=== PATIENT | female | born 1960 | race Caucasian/White ===

== ENCOUNTER 2020-10-06 16:17 | Outpatient (CLI) | payer OTHER, SELFPAY ==
--- NOTE | ~2020-10-06 | MM_ITS ---
EXAMINATION: MM screening reyna BI w gemma HISTORY: Screening TECHNIQUE: Craniocaudal and mediolateral oblique 3-D tomosynthesis images were obtained and synthetic 2-D images were generated. CAD analysis was submitted and interpreted. COMPARISON: Comparison to multiple prior studies sequentially, with oldest reviewed study dated 10/02. BREAST PARENCHYMAL COMPOSITION: There are scattered areas of fibroglandular density. FINDINGS: There is no evidence of suspicious mass, calcification, or architectural distortion to sugg est malignancy in either breast. There has been no suspicious interval change. IMPRESSION: 1. No mammographic evidence of malignancy. 2. Recommend routine screening mammography in one year. BI-RADS Category 1: Negative Reviewed, dictated and finalized at location A. ICATION SECURITY DEVELOPER
== END 2020-10-06 16:18 | disposition home or self-care (01) ==
LOC: ANHIMG 16:21
PROVIDERS: Family Provider Internal Medicine; PCP Internal Medicine; Visit Provider Obstetrics & Gynecology
DX: Z12.31 Encounter for screening mammogram for malignant neoplasm of breast (principal)
CPT/HCPCS: 77063; 77067

== ENCOUNTER 2021-03-30 17:01 | Emergency (ER) | payer OTHER, SELFPAY ==
--- NOTE | ~2021-03-30 | XR_ITS ---
EXAMINATION: XR finger 5th RT min 2V INDICATION: Right fifth finger pain, initial encounter TECHNIQUE: Four views of the right fifth finger are obtained. COMPARISON: None available FINDINGS: There is an acute, traumatic, closed, dorsal plate avulsion of the fifth distal phalanx. Th e fracture fragment is proximally retracted approximately 2 mm. There is flexion at the distal interp halangeal joint and mild extension at the proximal interphalangeal joint. Soft tissue swelling is not ed. IMPRESSION: 1. Dorsal plate avulsion of the fifth distal phalanx with 2 mm of retraction of the fracture fragment . Orthopedic evaluation is recommended. Reviewed, dictated and finalized at location A. IMPRESSION: 1. Dorsal plate avulsion of the fifth distal phalanx with 2 mm of retraction of the fracture fragment. Orthopedic evaluation is recommended.
--- NOTE | 2021-03-30 17:05 | ED.UPPEXIN ---
HPI - Extremity Injury (Upper) General Chief Complaint: Wound/Laceration Stated Complaint: Right Finger Pain Time Seen by Provider: 03/30/21 17:05 Source: patient, family and RN notes reviewed History of Present Illness HPI narrative: Patient is a 61-year-old female who presents the urgent care with complaints of right finger pain. Patient states that she jumped up into her boyfriend's truck, landing on her right pinky finger. Patient states that it is been deformed since approximately 1 PM. States that she is unable to straighten the finger. Patient is used ice for the pain. Denies of any other acute complaints or injuries. No acute distress noted. Patient aware of the plan of care. Some parts of this dictation were generated by voice recognition software and may contain typographical and/or grammatical inaccuracies. Related Data Home Medications Medication Instructions Recorded Confirmed dorzolamide-timolol 03/30/21 etodolac mg 03/30/21 lisinopril 03/30/21 rosuvastatin mg 03/30/21 travoprost drp 03/30/21 Allergies Allergy/AdvReac Type Severity Reaction Status Date / Time Z-PACK Allergy Unknown Uncoded 11/21/16 18:27 Dust AdvReac Unknown Uncoded 11/21/16 18:27 Molds and Smuts AdvReac Unknown Uncoded 11/21/16 18:27 Review of Systems Review of Systems: CONSTITUTIONAL: Denies fever, chills, or sweats. EYES: Denies visual changes, redness, or discharge. ENT: Denies rhinorrhea, congestion, sore throat, or otalgia. CARDIOVASCULAR: Denies chest pain, palpitations, or edema. RESPIRATORY: Denies cough or dyspnea. GASTROINTESTINAL: Denies abdominal pain, nausea, vomiting, or diarrhea. GENITOURINARY: Denies dysuria or hematuria. SKIN: Denies rash or itching. MUSCULOSKELETAL: Reports of right finger pain NEUROLOGIC: Denies headache, numbness, or weakness. All other systems reviewed are negative, except as documented in HPI. PMFSH Comments At the time of my signature, I reviewed and agree with the nursing past medical, surgical, social, and family history. There is no relevant family history pertinent to the patient complaint. Exam Narrative: GENERAL: This is a well-nourished, well-developed patient, in no apparent distress. HEAD: normocephalic, atraumatic. EYES: PERRL. Sclera clear/white. Vision is grossly intact. EARS: External ears normal NOSE: External nose normal with no obvious nasal discharge, nares without redness, no rhinorrhea. THROAT: Mucous membranes moist NECK: Neck supple CARDIOVASCULAR: Regular rate and rhythm without murmurs, gallops, or rubs. RESPIRATORY: Clear to auscultation. Breath sounds equal bilaterally. No wheezes, rales, or rhonchi. SKIN: warm, intact with no suspicious lesions or rash, good texture and turgor. NEURO: awake, alert, and oriented to person, place and time. There were no obvious focal neurologic abnormalities. EXTREMITIES: Notable deformity noted to the DIP of the fifth digit on the right hand. Positive strong right radial pulse with capillary refill less than 2 seconds. Range of motion to affected digit limited due to deformity and pain Course Vital Signs Vital signs: Vital Signs Temperature 98.2 F 03/30/21 17:09 Pulse Rate 81 03/30/21 17:09 Respiratory Rate 16 03/30/21 17:09 Blood Pressure 129/86 03/30/21 17:09 Pulse Oximetry 100 03/30/21 17:09 Temperature 98.2 F 03/30/21 17:13 Pulse Rate 81 03/30/21 17:13 Respiratory Rate 16 03/30/21 17:13 Blood Pressure 129/86 03/30/21 17:13 Pulse Oximetry 100 03/30/21 17:13 Reviewed Procedures Orthopedic Splinting/Casting Injury #1: Side: right Upper Extremity Injury Location: finger (Fifth digit) Upper Extremity Immobilizer: aluminum form splint and betty tape Additional Comments: Metal form splint applied to the fifth digit of the right hand and betty taped to the fourth digit with Coban. Patient tolerated well. MDM - Extremity Injury (Upper) MDM Narrative M
[2021-03-30 17:09] VITALS: BP 129/86; PULSE 81; RESP 16; TEMP 36.8; O2SAT 100
[2021-03-30 17:13] VITALS: BP 129/86; PULSE 81; RESP 16; TEMP 36.8; O2SAT 100
== END 2021-03-30 18:00 | disposition home or self-care (01) ==
PROVIDERS: Emergency Provider Nurse Practitioner Family; PCP Internal Medicine
DX: S62.636A Displaced fracture of distal phalanx of right little finger, initial encounter for closed fracture (principal); X58.XXXA Exposure to other specified factors, initial encounter; E78.00 Pure hypercholesterolemia, unspecified; I10 Essential (primary) hypertension; H40.9 Unspecified glaucoma
CPT/HCPCS: 29130; 73140; 99214; G0463

== ENCOUNTER 2021-05-17 01:25 | Day surgery (SDC) | payer OTHER, SELFPAY ==
[2021-05-16 10:55] VITALS: BMI 28.3
--- NOTE | ~2021-05-17 | XR_ITS ---
EXAMINATION: XR surgery orthopedic EXAM DATE: 05/17/2021 15:23 INDICATION: Right 5th finger closed pinning. TECHNIQUE: Fluoroscopy used during XR surgery orthopedic performed by Dr. Aldo Valdez MD. Radi ologist was not present for the imaging or procedure. Total fluoroscopic time of 39 seconds. The DA P for this procedure was 3.5 cGycm2. A total of 2 images sent to PACS from the exam. Correlation ma de to Finger examination 03/30/2021. FINDINGS: Frontal and lateral images demonstrates a pin bridging the right 5th distal interphalangea l joint. Alignment is anatomic. Dorsal plate avulsion fracture is identified on the lateral projectio n. Correlate with procedure note. IMPRESSION: Fluoroscopy used during right 5th finger pinning. Reviewed, dictated and finalized at location B.
--- NOTE | 2021-05-17 07:26 | WPDHPUPDATE1 ---
History and Physical Update Update Date/Time: 05/17/21 07:26 History and Physical has been reviewed, including an updated exam of the patient. There are NO changes in the patient's condition. Risks, benefits, and alternatives have been discussed and questions answered. Patient agrees to proceed with procedure.
[2021-05-17 14:05] VITALS: BP 131/60; PULSE 62; RESP 14; TEMP 36.6; O2SAT 100
[2021-05-17 14:15] VITALS: BMI 28.1
[2021-05-17 14:51] VITALS: BP 162/89; PULSE 74; RESP 16; O2SAT 99
[2021-05-17 15:00] VITALS: BP 158/67; PULSE 62; RESP 16; O2SAT 99
[2021-05-17 15:10] VITALS: BP 141/66; PULSE 62; RESP 18; O2SAT 98
[2021-05-17 15:20] VITALS: BP 142/68; PULSE 60; RESP 18; TEMP 36.6; O2SAT 98
--- NOTE | 2021-05-17 15:27 | W.PM.PROC2 ---
Procedure Note - Detailed Date of Procedure 05/17/21 Pre-op Diagnosis right small finger bony mallet injury Post-op Diagnosis same Procedure Performed Closed reduction with percutaneous pinning of a right 5th bony mallet finger Surgeon Aldo Valdez MD Anesthesia local Indications Failed splint treatment Description of Procedure The digit was marked in the holding area. She was taken to the operating room placed supine on the operating table. A time-out was held and confirmed. Extremity was prepped and draped in usual fashion. The digit was imaged and AP and lateral position. A 0.045 in C-wire was a. This was entered distally and passed through the distal and middle phalanges to the base of the middle . This procedure with guided by C-arm imaging. Satisfactory placement was confirmed. The pin was cut beneath the skin level. The small incision for access of the pin cutter was sutured with 5 0 nylon. A Xeroform and Band-Aid bandage was applied patient is discharged from the operating room stable condition. A prescription for hydrocodone 5/325 3 was sent to her pharmacy. Estimated Blood Loss 1 Tourniquet Time 0 Drains No Packing No Pathology none sent Complications No immediate complications Condition stable Disposition same day
--- NOTE | 2021-05-17 15:51 | SUR.PHASEII ---
pt was a local, vss breathing even and unlabored, A&Ox4 pt is now waiting on a ride.
== END 2021-05-17 16:05 | disposition home or self-care (01) ==
PROVIDERS: PCP Internal Medicine; Visit Provider Plastic Surgery
PROC: (CPT 26608; principal; 2021-05-17 15:00)
DX: M20.011 Mallet finger of right finger(s) (principal)
CPT/HCPCS: 26432; C1713

== ENCOUNTER 2022-10-20 11:43 | Inpatient (IN) | payer OTHER, SELFPAY ==
--- NOTE | ~2022-10-20 | XR_ITS ---
XR hand LT min 3V 10/20/2022 12:59 INDICATION: Left hand pain and swelling PROCEDURE: 3 views left hand COMPARISON: No prior studies for comparison. FINDINGS: Fracture, dislocation or subluxation is not identified. There is mild polyarticular osteoar thritis. The soft tissues appear within normal limits. No foreign bodies are identified. IMPRESSION: 1: NO ACUTE BONE OR JOINT ABNORMALITY IDENTIFIED. Reviewed, dictated and finalized at location A. LY DINNER SERVICE SPECIALIST
[2022-10-20 12:48] VITALS: BP 147/99; PULSE 92; RESP 16; TEMP 37.3; O2SAT 100
[2022-10-20 14:41] LABS: Hematocrit 41.3 % (37.0-47.0); Hemoglobin 14.1 g/dL (12.0-15.0); Mean Corpuscular HGB Conc 34.1 g/dl (32-36); Mean Corpuscular Hemoglobin 30.1 pg (26-34); Mean Corpuscular Volume 88.2 fl (80-100); Mean Platelet Volume 10.3 fl (7.4-10.4); Platelet Count Result 253 k/mm3 (150-375); Red Blood Count 4.68 M/mm3 (4.2-5.4); Red Cell Distribution Width 12.3 % (11.5-14.5); White Blood Count 19.9 K/mm3 (4.5-10.0)
[2022-10-20] MEDS: KETOROLAC 30 MG/ML VIAL (*BKC) IV PUSH (14:44)
[2022-10-20 14:51] LABS: Anion Gap 7 mmol/L (8-16); Blood Urea Nitrogen 14 mg/dL (7-17); Carbon Dioxide 24 mmol/L (22-30); Chloride 102 mmol/L (98-107); Estimated CRCL calculation 59 ml/min; Estimated Glomerular Filt Rate > 60; Glucose 130 mg/dL (65-110); Potassium 3.8 mmol/L (3.4-5.0); Sodium 133 mmol/L (137-145)
--- NOTE | 2022-10-20 15:11 | ED.SKABFB ---
HPI - Skin/Abscess/Foreign Bdy General Chief complaint: Skin/Abscess/Foreign Body Stated complaint: swelling/pain left hand, wound present Time Seen by Provider: 10/20/22 13:02 Source: patient and family Mode of arrival: ambulatory Limitations: no limitations History of Present Illness HPI narrative: Patient is 62 years old white female presents with swelling, pain and redness of the left hand started last night. Patient reports picking up some tiny black specks from a little cut/like paper cut at the web between the thumb and index. 2 to 3 days ago. Subsequently patient developed redness, swelling and pain at the left hand mainly at the dorsal side. Patient is not diabetic, reports some fever and chills. Related Data Home Medications Medication Instructions Recorded Confirmed dorzolamide 22.3 mg-timolol 6.8 1 drp EACH EYE BID 03/30/21 05/17/21 mg/mL eye drops etodolac 400 mg tablet 400 mg PO BID 03/30/21 05/16/21 lisinopril 10 mg tablet 10 mg PO HS 03/30/21 05/16/21 rosuvastatin 10 mg tablet 10 mg PO HS 03/30/21 05/16/21 travoprost 0.004 % eye drops 1 drp LEFT EYE HS 03/30/21 05/16/21 Allergies Allergy/AdvReac Type Severity Reaction Status Date / Time Z-PACK Allergy Intermediate Swelling Uncoded 10/20/22 12:58 of Lip/Tongue/Throat Dust AdvReac Mild Difficulty Uncoded 10/20/22 12:58 Breathing Molds and Smuts AdvReac Mild Difficulty Uncoded 10/20/22 12:58 Breathing Review of Systems Review of Systems: All systems reviewed & are unremarkable except as noted in HPI and below PMFSH Social History Social History Smoking status: Never smoker Living arrangements: alone Spiritual care concerns: No Exam Narrative: General appearance: Well-developed, well-nourished Skin: Normal color left hand showed diffuse swelling, tenderness, warmth, and redness. A 1 cm old wound at the web between the thumb and index Head: Normocephalic, nontraumatic Eyes: Clear conjunctiva ENT: Oropharynx normal, ears normal, nose normal Neck: Supple, nontender Chest and respiratory: Airway patent, no respiratory distress, no accessory muscle use Heart: Regular rate/rhythm Abdomen: Soft, nontender, no organomegaly, quiet bowel sounds Vascular: Normal peripheral pulses, normal capillary refill. Musculoskeletal: Normal range of motion, nontender back Neurologic: Alert and oriented ?3, ACCESS DATABASE DEVELOPER is normal as tested, no gross motor deficit Course Reevaluation(s) Reevaluation #1: Patient received 1 g of vancomycin IV, Toradol 30 mg IV, feels a little bit better. Admission to hospitalist, consult Dr. Iqbal. Date: 10/20/22 Time: 15:33 Consultations Consultation #1: Rasheed Date: 10/20/22 Time: 15:32 Vital Signs Vital signs: Vital Signs Temperature 37.3 C 10/20/22 12:48 Pulse Rate 92 10/20/22 12:48 Respiratory Rate 16 10/20/22 12:48 Blood Pressure 147/99 H 10/20/22 12:48 Pulse Oximetry 100 10/20/22 12:48 Oxygen Delivery Room Air 10/20/22 12:48 Temperature 37.3 C 10/20/22 12:48 Pulse Rate 92 10/20/22 12:48 Respiratory Rate 16 10/20/22 12:48 Blood Pressure 147/99 H 10/20/22 12:48 Pulse Oximetry 100 10/20/22 12:48 Oxygen Delivery Room Air 10/20/22 12:48 MDM - Skin/Abscess/Foreign Bdy MDM Narrative Medical decision making narrative: Patient presents with infected left hand secondary to possible wound at the web between the thumb and index. Patient is nondiabetic. Left hand x-ray showed no acute abnormalities. Blood work-up showed leukocytosis with left shift. Vancomycin, Zosyn ordered. Dr. Valdez consulted. Patient will be admitted for [facility]
[2022-10-20 15:22] LABS: Atypical Lymphocytes Present; Band Neutrophils Percent 1 % (0-6); Lymphocytes Absolute Manual 0.99 K/mm3 (1.1-4.5); Monocytes Absolute Manual 1.19 K/mm3 (0.1-0.90); Monocytes Percent Manual 6 % (3-9); Neutrophils Absolute Manual 17.71 K/mm3 (1.7-7.2); Neutrophils Percent Manual 88 % (46-73); Platelet Estimate Adequate (Adequate); Schistocytes None Seen (NORMAL); Total Cells Counted 100
[2022-10-20 16:28] VITALS: BP 142/96; PULSE 89; RESP 17; O2SAT 99
--- NOTE | 2022-10-20 16:31 | PC.NURSE ---
ordered pt. dinner tray.
--- NOTE | 2022-10-20 16:55 | PM.IMHP ---
H&P: HPI History of Present Illness Date/Time: 10/20/22 16:55 Chief Complaint: Skin abscess Narrative: This is a 62-year-old female patient who came in to the emergency room with complaint of left hand pain that started last night. The patient is not sure if she had a paper cut or how she cut the web between the left thumb and the left index finger. She noticed that there was a crack there and then the redness developed. She stated she thinks she got a paper cut 2-3 days ago. The redness and swelling has increased as well as pain the whole left hand up to the wrist area is red. Area blanches well. Her white count is 19.9. X-ray of the left hand shows no acute bone or joint abnormality identified. The patient was given Toradol, Zosyn and vancomycin. Dr. Valdez has been consulted. The patient's blood sugar was elevated today but she is not diabetic. The patient is being admitted to observation status on the date of service of 10/20/2022 Review of Systems Review of Systems: See HPI All systems reviewed & are unremarkable except as noted in HPI and below Constitutional: Constitutional: Reports as per HPI and Reports no additional constitutional complaints Eyes: Eyes: Reports as per HPI and Reports no additional eye complaints ENT: Reports system reviewed and no additional complaints, except as documented and Reports Normal hearing present Cardiovascular: Cardiovascular: Reports no additional cardiovascular complaints Respiratory: Respiratory: Reports no additional respiratory complaints and Reports no additional respiratory complaints Gastrointestinal: Gastrointestinal: Reports as per HPI and Reports no additional gastrointestinal complaints Musculoskeletal: Musculoskeletal: Reports no additional musculoskeletal complaints Integumentary/Breasts: Skin/Breast: Reports system reviewed and no additional complaints, except as docu and Reports as per HPI Neurologic: Reports system reviewed and no additional complaints, except as documented, Reports as per HPI and Reports Normal hearing present Psychiatric: Psychiatric: Reports no additional psychiatric complaints and Reports as per HPI Endocrine: Endocrine: Reports no additional endocrine complaints Hematologic/Lymphatic: Hematologic/Lymphatic: Reports no additional hematologic/lymphatic complaints Allergic/Immunologic: Allergic/Immunologic: Reports no additional allergic/immunologic complaints [facility] Past Medical History Medical History (Updated 10/20/22 @ 21:20 by Kassie Srinivasan NP) Cellulitis of hand, right Glaucoma Hyperlipidemia Hypertension Osteoarthritis Pilonidal cyst removed Surgical History Surgical History (Updated 10/20/22 @ 21:06 by Kassie Srinivasan NP) H/O bilateral salpingo-oophorectomy H/O section 2 H/O eye surgery H/O hand surgery small finger right hand H/O tubal ligation History of surgical removal of skin lesion cyst off the tail bone S/P ORIF (open reduction internal fixation) fracture Left ankle Family History Family History Father Hypertension Hyperlipidemia Mother Hypertension Hyperlipidemia Sibling Lung calculus brother Glaucoma sister Social History Social History (Updated 10/20/22 @ 21:16 by Kassie Srinivasan NP) Social History: Lives alone since she has been but now has significant other. She has two children and two step children. 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 code status full code Smoking status: Never smoker Alcohol intake: former Substance use: never Lack of Transportation: No Lack of Food: Never True Current Housing: I Have Housing Concerned About Future Housing: No Difficulty Paying Gas/Electric Bills: No Difficulty Paying for Meds: No Currently Unemployed: No Education: Bachelor's Degree Difficulty w/ Childcare or Family Care: No Living arran
--- NOTE | 2022-10-20 17:53 | ADMGEN ---
This patient, Melissa Schmitz, was admitted to Medical Room [facility] at 1745. Patient/family oriented to hospital policies and general routines including ID bracelet, bed and alarms, visiting hours, pain management, procedures, bathroom and other care routines, personal items, smoking policy, room service/diet, and visiting hours. Information on how to activate the Rapid Response Team has been discussed. Patient/Family are encouraged to report perceived risks to care and to ask questions if they do not understand what they are told or what they should do.
[2022-10-20] MEDS: SODIUM CHLORIDE 0.9% IV 1,000 ML 150 ML IV CONT (18:18)
[2022-10-20 20:22] VITALS: BP 123/63; PULSE 89; RESP 20; TEMP 37.7; O2SAT 98
[2022-10-20] MEDS: ROSUVASTATIN 10 MG TABLET PO (22:18)
[2022-10-20] MEDS: DORZOLAMIDE/TIMOLOL OPHTH SOL 10 ML BOTTLE 1 DROP EACH EYE (22:18)
[2022-10-20] MEDS: lisinopriL 10 MG TABLET PO (22:18)
[2022-10-20] MEDS: LATANOPROST 0.005% OP SOLN 2.5 ML BTL 1 DROP EACH EYE (22:18)
[2022-10-21] MEDS: SODIUM CHLORIDE 0.9% IV 1,000 ML 150 ML IV CONT (03:28)
[2022-10-21 05:04] VITALS: BP 124/70; PULSE 83; RESP 22; TEMP 36.6; O2SAT 99
[2022-10-21 05:48] LABS: Basophils Percent Auto 0.2 % (0.2-1.2); Eosinophils Percent Auto 0.1 % (0-4.4); Hematocrit 35.6 % (37.0-47.0); Immature Granulocyte Absolute 0.21 K/mm3 (0.00-0.031); Immature Granulocyte Percent A 1.2 % (0-0.5); Lymphocytes Absolute Auto 0.53 K/mm3 (0.9-3.2); Lymphocytes Percent Auto 3.1 % (18.3-44.2); Mean Corpuscular HGB Conc 33.7 g/dl (32-36); Mean Corpuscular Hemoglobin 29.6 pg (26-34); Mean Corpuscular Volume 87.9 fl (80-100); Mean Platelet Volume 10.5 fl (7.4-10.4); Monocytes Absolute Auto 1.4 K/mm3 (0.1-0.6); Neutrophils Absolute Auto 14.9 K/mm3 (1.3-6.7); Neutrophils Percent Auto 87.4 % (45.5-73.1); Platelet Count Result 202 k/mm3 (150-375); Red Blood Count 4.05 M/mm3 (4.2-5.4); Red Cell Distribution Width 12.3 % (11.5-14.5)
[2022-10-21 06:05] LABS: Potassium 3.7 mmol/L (3.4-5.0)
[2022-10-21 06:08] LABS: Lactic Acid Reflex 1.1 mmol/L (0.7-2.0)
[2022-10-21 06:13] LABS: Alanine Aminotransferase 23 U/L (6-35); Albumin Level 3.8 g/dL (3.5-5.1); Alkaline Phosphatase 60 U/L (38-126); Anion Gap 6 mmol/L (8-16); Aspartate Amino Transferase 26 U/L (14-36); Bilirubin,Total 1.4 mg/dL (0.2-1.3); Blood Urea Nitrogen 17 mg/dL (7-17); Calcium 7.8 mg/dL (8.4-10.2); Carbon Dioxide 25 mmol/L (22-30); Chloride 103 mmol/L (98-107); Estimated CRCL calculation 40 ml/min; Estimated Glomerular Filt Rate 45; Glucose 119 mg/dL (65-110); Magnesium 1.8 mg/dL (1.6-2.3); Sodium 134 mmol/L (137-145)
[2022-10-21 06:32] LABS: Thyroid Stimulating Hormone Reflex 0.358 uIU/mL (0.465-4.68)
[2022-10-21 08:07] LABS: Free T4 Free Thyroxine Reflex 1.02 ng/dL (0.78-2.19)
[2022-10-21] MEDS: DORZOLAMIDE/TIMOLOL OPHTH SOL 10 ML BOTTLE 1 DROP EACH EYE ×2 (08:58→21:09)
[2022-10-21] MEDS: ENOXAPARIN 40 MG/0.4 ML SYRINGE SUB-Q (08:58)
--- NOTE | 2022-10-21 09:00 | WPDCN ---
Assessment and Plan Assessment and plan (1) Cellulitis of left hand: Code(s): L03.114 - Cellulitis of left upper limb Status: Acute Assessment and Plan: Cellulitis without evidence of absces at this time. Agree with current antibiotic therapy. Elevate. Will monitor daily for any cause to address surgically. HPI Data of Consult Date/Time: 10/21/22 09:00 Requesting Physician: Cara Paiz PA-C Primary Care Provider: Nathaniel Barton, MD Consult Narrative Reason for consult: Acute left hand infection. Narrative: Melissa Schmitz is a 62 year old female admitted last evening with rapid onset of left hand cellulitis. This began at the site where she recalls a 1 cm skin opening, consistent with a paper cut, but the actual cause is not certain. No history of spider bite. She noticed it on the and washed it with H2O2. It has since closed. The area proceeded to become red, swollen and tender to the point that she sought medical attention at the E.D. She has dogs and cats at her home, but does not implicate any of them. 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 Not diabetic. No know immune deficiency. In the ED she was found to have: Normal hand x-ray with the exception of soft tissue swelling, WBC 20 Ser gluc ~120 LFTs wnl Lactic acid 1.1 Cx None ordered. Treatment: IV Zosyn (stopped), Vanco, Cefapime. [facility] Past Medical History Medical History Cellulitis of hand, right Glaucoma Hyperlipidemia Hypertension Osteoarthritis Pilonidal cyst removed Surgical History Surgical History H/O bilateral salpingo-oophorectomy H/O section 2 H/O eye surgery H/O hand surgery small finger right hand H/O tubal ligation History of surgical removal of skin lesion cyst off the tail bone S/P ORIF (open reduction internal fixation) fracture Left ankle Family History Family History Father Hypertension Hyperlipidemia Mother Hypertension Hyperlipidemia Sibling Lung calculus brother Glaucoma sister Social History Social History Social History: Lives alone since she has been but now has significant other. She has two children and two step children. 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 code status full code Smoking status: Never smoker Alcohol intake: former Substance use: never Lack of Transportation: No Lack of Food: Never True Current Housing: I Have Housing Concerned About Future Housing: No Difficulty Paying Gas/Electric Bills: No Difficulty Paying for Meds: No Currently Unemployed: No Education: Bachelor's Degree Difficulty w/ Childcare or Family Care: No Living arrangements: alone Spiritual care concerns: No Meds Home Medications and Allergies Home Medications Medication Instructions Recorded Confirmed Type dorzolamide 22.3 mg-timolol 6.8 1 drp EACH EYE BID 03/30/21 10/20/22 History mg/mL eye drops etodolac 400 mg tablet 400 mg PO BID PRN Muscle Pain 03/30/21 10/20/22 History lisinopril 10 mg tablet 10 mg PO HS 03/30/21 10/20/22 History rosuvastatin 10 mg tablet 10 mg PO HS 03/30/21 10/20/22 History travoprost 0.004 % eye drops 1 drp LEFT EYE HS 03/30/21 10/20/22 History Allergies Allergy/AdvReac Type Severity Reaction Status Date / Time azithromycin Allergy Severe Swelling Verified 10/20/22 15:47 of Lip/Tongue/Throat Dust AdvReac Mild Difficulty Uncoded 10/20/22 12:58 Breathi
[2022-10-21 09:01] LABS: Total Triiodothyronine (T3) 0.65 NG/ML (0.97-1.69)
[2022-10-21 12:32] LABS: Glucose Point of Care 117 mg/dl (65-105)
[2022-10-21 14:00] VITALS: BP 142/76; PULSE 83; RESP 20; TEMP 36.7; O2SAT 100
--- NOTE | 2022-10-21 15:06 | PM.IMPN ---
Progress Note: A&P Assessment and Plan (1) Cellulitis of left hand: Code(s): L03.114 - Cellulitis of left upper limb Status: Acute Assessment and Plan: Patient presented with left hand edema and erythema after noticing a tiny wound and the web of the 1st and 2nd digit appreciate Plastic/hand surgery consultation continue vancomycin. Stop Zosyn and switch to cefepime unfortunately blood cultures not collected prior to initiating antibiotics. Will obtain at this time WBC slight improvement 17. continue to monitor patient remains afebrile trend CRP supportive care. Elevate extremity (2) RADHA (acute kidney injury): Code(s): N17.9 - Acute kidney failure, unspecified Status: Acute Assessment and Plan: creatinine normal on admission at 0.8 with increased to 1.2 today. Not felt to be prerenal in etiology as patient has been rehydrated with IV fluids and creatinine normal on presentation concerning for ATN secondary to infection versus antibiotics patient initiated on combination vancomycin and Zosyn which can cause kidney injury. Zosyn discontinued. hold lisinopril monitor renal function closely no urinary symptoms consider further workup including UA and renal ultrasound if no improvement (3) Abnormal TSH: Code(s): R79.89 - Other specified abnormal findings of blood chemistry Status: Acute Assessment and Plan: TSH slightly decreased at 0.358 with normal T4 will need repeat TSH as an outpatient when not acutely ill (4) Hypertension: Code(s): I10 - Essential (primary) hypertension Status: Acute Assessment and Plan: blood pressures are stable. Last BP 124/70 hold lisinopril due to RADHA monitor blood pressure trends Subjective Date/time seen: 10/21/22 15:06 Interval history: date of service: 10/21/2022 Melissa Schmitz is a 62-year-old female with a history of hypertension, hyperlipidemia, osteoarthritis, and glaucoma who is seen in follow-up for left hand cellulitis. She feels that her swelling is slightly improved today. She states she is able to been did move the hand a little bit better today. States that the tenderness has improved. Continues to feel warm. She has not noticed much change in the redness but her family member sitting at the bedside feels that it is less red. She has noticed the redness spreading up her forearm states that stops just below her elbow. She denies nausea, vomiting, fever, or chills. She endorses discomfort that she rates 3/10 which seems to all be due to the swelling. She does not have pain. She has no additional concerns. She is tolerating her diet. She denies dysuria, hematuria, urgency, or frequency. She has had some left-sided low back pain for about 2 weeks which is more bothersome with positional changes. Review of Systems Review of Systems: All systems reviewed & are unremarkable except as noted in HPI and below Exam Narrative: General: Well-nourished, well-appearing 62-year-old female, sitting up in bed, comfortable, NARD Neuro: awake, alert and oriented x4, speech clear, no focal neuro deficits noted HEENMT: normocephalic, atraumatic, EOMI, sclerae anicteric, moist oral mucosa Respiratory: clear to auscultation bilaterally, nonlabored breathing Cardio: regular rate, regular rhythm with S1-S2 Abdomen: nondistended, normoactive bowel sounds, soft, nontender to palpation Extremities: left hand with diffuse 2+ edema, marked erythema, warm and slightly tender to palpation with very faint lymphangitic streaking up the forearm. able to wiggle fingers. Able to make a fist. Brisk capillary refill bilaterally. BLE no edema, erythema, or tenderness to palpation, DP pulses 2+ bilaterally Skin: tiny linear abrasion in the web the hand between the 1st and 2nd digit, wound is closed. No drainage or pus.no rashes or lesions, warm and dry Psych: appropria
[2022-10-21] MEDS: ONDANSETRON INJ 4 MG/2 ML VIAL IV PUSH (15:34)
[2022-10-21] MEDS: LATANOPROST 0.005% OP SOLN 2.5 ML BTL 1 DROP EACH EYE (21:09)
[2022-10-21] MEDS: ROSUVASTATIN 10 MG TABLET PO (21:10)
[2022-10-21 22:00] VITALS: BP 140/81; BP 143/72; PULSE 82; RESP 18; RESP 20; TEMP 37; O2SAT 96
[2022-10-22] VITALS (9 sets, daily range): BP systolic 104–143; BP diastolic 33–83; PULSE 60–70; RESP 12–18; TEMP 36.6–37.4; O2SAT 95–100
[2022-10-22 05:50] LABS: Hemoglobin 12.1 g/dL (12.0-15.0); Mean Corpuscular HGB Conc 32.7 g/dl (32-36); Mean Corpuscular Hemoglobin 29.1 pg (26-34); Mean Corpuscular Volume 88.9 fl (80-100); Mean Platelet Volume 11.1 fl (7.4-10.4); Platelet Count Result 207 k/mm3 (150-375); Red Blood Count 4.16 M/mm3 (4.2-5.4); Red Cell Distribution Width 12.3 % (11.5-14.5); White Blood Count 15.9 K/mm3 (4.5-10.0)
[2022-10-22 06:12] LABS: Alanine Aminotransferase 26 U/L (6-35); Albumin Level 3.9 g/dL (3.5-5.1); Alkaline Phosphatase 80 U/L (38-126); Anion Gap 5 mmol/L (8-16); Aspartate Amino Transferase 25 U/L (14-36); Bilirubin,Total 0.9 mg/dL (0.2-1.3); Blood Urea Nitrogen 14 mg/dL (7-17); CRP 26.5 mg/dL (<1.0); Calcium 8.5 mg/dL (8.4-10.2); Carbon Dioxide 23 mmol/L (22-30); Chloride 103 mmol/L (98-107); Estimated CRCL calculation 48 ml/min; Estimated Glomerular Filt Rate 56; Glucose 109 mg/dL (65-110); Magnesium 2.1 mg/dL (1.6-2.3); Potassium 3.9 mmol/L (3.4-5.0); Sodium 131 mmol/L (137-145)
--- NOTE | 2022-10-22 07:48 | WPDPN ---
Progress Note: A&P Assessment and Plan (1) Cellulitis of left hand: Code(s): L03.114 - Cellulitis of left upper limb Status: Acute Assessment and Plan: Insufficient improvement with IV antibiotics over past 24 hours. NPO. Consent for I&D in OR under general anesthesia today. Subjective Date/time seen: 10/22/22 07:48 Interval history: I awoke her this a.m. She said she had not had any food or drink this morning. Believes she moves fingers about the same as yesterday. She showed me increased erythema up her forearm. Exam Narrative: Persistence of swellilng and erythema at radial hand and wrist. Now up forearm. Still able to flex and extend digits. Area is edematous, but only mildly tender. WBC still ~15. CRP 26.5. Glucose 117. LFTs normal. Creat. 1.0. Objective Data Vital Signs Vital Signs: Vital Signs - 24 hr 10/21/22 14:00 10/21/22 22:00 10/21/22 22:00 Temperature 98.1 F 98.6 F 98.6 F Pulse Rate 83 82 82 Respiratory Rate 20 20 18 Blood Pressure 142/76 H 143/72 H 140/81 Pulse Oximetry 100 96 96 Intake/Output Intake/Output: Intake & Output 10/19/22 10/20/22 10/21/22 10/22/22 23:59 23:59 23:59 23:59 Intake Total 350 2120 Balance 350 2120 Meds/Results Medications: Active Medications Generic Name Dose Route Start Last Admin Trade Name Freq PRN Reason Stop Dose Admin Acetaminophen 650 mg 10/20/22 15:39 Acetaminophen 325 Mg Tablet PO Q4H PRN Mild Pain (1-3) or Fever Hydrocodone Bitart/Acetaminophen 1 tab 10/20/22 17:09 Hydrocodone/Acetaminophen (*Crx) 5-325 Mg Tablet PO Q4H PRN pain 4-7 Dorzolamide/Timolol 1 drop 10/20/22 21:45 10/21/22 21:09 Dorzolamide/Timolol Ophth Wendi 10 Ml Bottle EACH EYE 1 drop Q12HR VENKAT Administration Enoxaparin Sodium 40 mg 10/21/22 09:00 10/21/22 08:58 Enoxaparin 40 Mg/0.4 Ml Syringe SUB-Q 40 mg DAILY VENKAT Administration Vancomycin HCl 1,000 mg in 250 mls @ 250 mls/hr 10/21/22 14:00 10/21/22 16:33 Vancomycin 1,000 Mg/D5w 250 Ml IVPB Infused Q24H VENKAT Infusion Cefepime HCl 2 gm in 50 mls @ 100 mls/hr 10/21/22 09:00 10/21/22 21:39 Maxipime 2 Gm/D5w 50 Ml IVPB Infused Q12HR VENKAT Infusion Latanoprost 1 drop 10/20/22 21:45 10/21/22 21:09 Latanoprost 0.005% Op Soln 2.5 Ml Btl EACH EYE 1 drop HS VENKAT Administration Lisinopril 10 mg 10/20/22 21:50 10/20/22 22:18 Lisinopril 10 Mg Tablet PO 10 mg HS VENKAT Administration Menthol/Methyl Salicylate 1 applic 10/20/22 21:20 Menthol 10% / Methyl Salicylate 15% 57 Gm Tube TOPICAL BID PRN Muscle/Joint Pain Ondansetron HCl 4 mg 10/21/22 15:26 10/21/22 15:34 Ondansetron Inj 4 Mg/2 Ml Vial IV PUSH 4 mg Q4H PRN Administration Nausea And Vomiting Rosuvastatin Calcium 10 mg 10/20/22 21:50 10/21/22 21:10 Rosuvastatin 10 Mg Tablet PO 10 mg HS VENKAT Administration Radiology Results: ITS Impressions Hand X-Ray 10/20/22 13:01 IMPRESSION: 1: NO ACUTE BONE OR JOINT ABNORMALITY IDENTIFIED. Labs Labs: Laboratory Results - last 24 hr 10/21/22 10/21/22 10/21/22 05:38 05:38 12:13 WBC RBC Hgb Hct MCV MCH MCHC RDW Plt Count MPV Sodium Potassium Chloride Carbon Dioxide Anion Gap BUN Creatinine Estim Creat Clear Calc Estimated GFR Glucose POC Capillary Glucose 117 H Calcium Magnesium Total Bilirubin AST ALT Alkaline Phosphatase C-Reactive Protein Total Protein Albumin Free T4 1.02 Total T3 0.65 L 10/22/22 10/22/22 05:27 05:27 WBC 15.9 H RBC 4.16 L Hgb 12.1 Hct 37.0 MCV 88.9 MCH 29.1 MCHC 32.7 RDW 12.3 Plt Count 207 MPV 11.1 H Sodium 131 L Potassium 3.9 Chloride 103 Carbon Dioxide 23 Anion Gap 5 L BUN 14 Creatinine 1.00 Estim Creat Clear Calc 48 Estimated GFR 56 L Glucose 109 POC C
[2022-10-22] MEDS: ENOXAPARIN 40 MG/0.4 ML SYRINGE SUB-Q (09:45)
[2022-10-22] MEDS: DORZOLAMIDE/TIMOLOL OPHTH SOL 10 ML BOTTLE 1 DROP EACH EYE ×2 (09:45→19:49)
--- NOTE | 2022-10-22 11:07 | WPDANESEPPF ---
Anes - Initial Pre Proc Eval Procedure: Operation Date: 10/22/22 12:30 Proposed Procedures p Incision And Drainage Left Hand - Aldo Valdez MD Date/Time: 10/22/22 11:07 Surgeon: Cara Paiz PA-C Pre Op Diagnosis: Left Hand Cellulitis Secondary to Infected Wound Patient Data Age: 62 Gender: F Height: 1.57 m Weight: 73 kg Last Vital Signs Temp 37.0 C 10/21/22 22:00 Pulse 82 10/21/22 22:00 Resp 18 10/21/22 22:00 BP 140/81 10/21/22 22:00 Pulse Ox 96 10/21/22 22:00 O2 Del Method Room Air 10/22/22 09:45 Allergies Allergy/AdvReac Type Severity Reaction Status Date / Time azithromycin Allergy Severe Swelling Verified 10/20/22 15:47 of Lip/Tongue/Throat Dust AdvReac Mild Difficulty Uncoded 10/20/22 12:58 Breathing Molds and Smuts AdvReac Mild Difficulty Uncoded 10/20/22 12:58 Breathing Home Medications Medication Instructions Recorded Confirmed Type dorzolamide 22.3 mg-timolol 6.8 1 drp EACH EYE BID 03/30/21 10/20/22 History mg/mL eye drops etodolac 400 mg tablet 400 mg PO BID PRN Muscle Pain 03/30/21 10/20/22 History lisinopril 10 mg tablet 10 mg PO HS 03/30/21 10/20/22 History rosuvastatin 10 mg tablet 10 mg PO HS 03/30/21 10/20/22 History travoprost 0.004 % eye drops 1 drp LEFT EYE HS 03/30/21 10/20/22 History Laboratory Tests 10/21/22 10/22/22 10/22/22 12:13 05:27 05:27 WBC 15.9 K/mm3 H K/mm3 (4.5-10.0) RBC 4.16 M/mm3 L M/mm3 (4.2-5.4) Hgb 12.1 g/dL g/dL (12.0-15.0) Hct 37.0 % % (37.0-47.0) MCV 88.9 fl fl (80-100) MCH 29.1 pg pg (26-34) MCHC 32.7 g/dl g/dl (32-36) RDW 12.3 % % (11.5-14.5) Plt Count 207 k/mm3 k/mm3 (150-375) MPV 11.1 fl H fl (7.4-10.4) Sodium 131 mmol/L L mmol/L (137-145) Potassium 3.9 mmol/L mmol/L (3.4-5.0) Chloride 103 mmol/L mmol/L (98-107) Carbon Dioxide 23 mmol/L mmol/L (22-30) Anion Gap 5 mmol/L L mmol/L (8-16) BUN 14 mg/dL mg/dL (7-17) Creatinine 1.00 mg/dL mg/dL (0.7-1.0) Estim Creat Clear Calc 48 ml/min ml/min Estimated GFR 56 L (59 - ) Glucose 109 mg/dL mg/dL (65-110) POC Capillary Glucose 117 mg/dl H mg/dl (65-105) Calcium 8.5 mg/dL mg/dL (8.4-10.2) Magnesium 2.1 mg/dL mg/dL (1.6-2.3) Total Bilirubin 0.9 mg/dL mg/dL (0.2-1.3) AST 25 U/L U/L (14-36) ALT 26 U/L U/L (6-35) Alkaline Phosphatase 80 U/L U/L (38-126) C-Reactive Protein 26.5 mg/dL H mg/dL (<1.0) Total Protein 7.0 g/dL g/dL (6.3-8.2) Albumin 3.9 g/dL g/dL (3.5-5.1) Patient hx anesthesia problems: none Family hx anesthesia problems: none Results Review: All pre-operative results and documents have been reviewed as part of the pre-operative evaluation. [facility], [facility] Past Medical History Medical History Cellulitis of hand, right Glaucoma Hyperlipidemia Hypertension Osteoarthritis Pilonidal cyst removed Surgical History Surgical History H/O bilateral salpingo-oophorectomy H/O section 2 H/O eye surgery H/O hand surgery small finger right hand H/O tubal ligation History of surgical removal of skin lesion cyst off the tail bone S/P ORIF (open reduction internal fixation) fracture Left ankle Family History Family History Father Hypertension Hyperlipidemia Mother Hypertension Hyperlipidemia Sibling Lung calculus brother Glaucoma sister Social History Social History Social History: Lives alone since she has been but now has significant
[2022-10-22] MEDS: LACTATED RINGERS 1,000 ML 30 ML IV CONT ×2 (11:10→13:35)
--- NOTE | 2022-10-22 12:06 | WPDHPUPDATE1 ---
History and Physical Update Update Date/Time: 10/22/22 12:06 History and Physical has been reviewed, including an updated exam of the patient. There are NO changes in the patient's condition. Risks, benefits, and alternatives have been discussed and questions answered. Patient agrees to proceed with procedure.
--- NOTE | 2022-10-22 12:07 | P.OP_ITS ---
Procedure Note - Detailed Date of Procedure 10/22/22 Pre-op Diagnosis Left Hand Cellulitis Secondary to Infected Wound Post-op Diagnosis Other (Subcutaneous abscess left hand) Procedure Performed I&D abscess of left hand. Surgeon Aldo Valdez MD Painter Barrel Sean Anesthesia General Description of Procedure The left hand was marked on the patient with her consent in the holding area. She was taken to the operating room where she was placed supine on the operating table. The patient was given IV sedation with an LMA. The left upper extremity was prepped and draped in usual fashion. The site was marked for initial incision on the dorsal 1st webspace. This area was infiltrated with % lidocaine with epinephrine. Extremity was elevated and the tourniquet inflated 250 mmHg. The incision was made proximally 1 in length to begin. We encountered pus in the subcutaneous tissue. This incision was extended to about 3.5 cm. Digital examination in the subcutaneous tissue revealed obvious tunneling with separation of the subcutaneous tissue. Approximately 3 milliliter of pus drained. This was sent for aerobic and anaerobic cultures and Gram stain. Additional incisions were made into all areas that permitted finger dissection. This extended just slightly over the retinaculum. It extended into the dorsal hand and ulnar hand and into the palmar aspect of the 1st webspace. Each of these areas was connected and irrigated with 2 L of saline. Alginate Ag rope was placed into all of the sites and exited from at least one secondary site. There were 4 separate pieces. the tourniquet was released. Compression was held for about 5 minutes until bleeding stops. The bulky Kerlix fluff and Roll dressing was applied Estimated Blood Loss 5 Drains No Packing Yes Pathology Yes Complications No immediate complications Condition Stable Disposition PACU
[2022-10-22] MEDS: LIDO 1%/EPINEPHRINE 1:100,000 20 ML VIAL 10 ML INFILTRATE (12:48)
[2022-10-22] MEDS: SILVER NITRATE 1 EA BANDAGE (AQUACEL-AG)(*BKC) 1 EACH TOPICAL (12:56)
[2022-10-22] MEDS: fentaNYL CITRATE INJ (*CRX) 100 MCG/2 ML VIAL 25 MCG IV PUSH ×4 (13:30→13:40)
--- NOTE | 2022-10-22 15:52 | PM.IMPN ---
Progress Note: A&P Assessment and Plan (1) Cellulitis of left hand: Code(s): L03.114 - Cellulitis of left upper limb Status: Acute Assessment and Plan: Patient presented with left hand edema and erythema after noticing a tiny wound and the web of the 1st and 2nd digit appreciate Plastic/hand surgery consultation continue vancomycin and cefepime she did not have sufficient improvement with antibiotics, therefore was taken to the OR for I and D this afternoon. Tolerated the procedure well blood cultures are pending ( obtained after initiation of antibiotics as these were not obtained on arrival/admission) WBC with slight improvement to 15.9. continue to monitor CRP elevated at 26.5. Continue to trend patient remains afebrile supportive care. Elevate extremity (2) RADHA (acute kidney injury): Code(s): N17.9 - Acute kidney failure, unspecified Status: Acute Assessment and Plan: creatinine normal on admission at 0.8 with increased to 1.2 today. Not felt to be prerenal in etiology as patient has been rehydrated with IV fluids and creatinine normal on presentation concerning for ATN secondary to infection versus antibiotics patient initiated on combination vancomycin and Zosyn which can cause kidney injury. Zosyn discontinued on 10/21. lisinopril held. Resume today improvement today with creatinine 1.0 continue to monitor renal function closely (3) Abnormal TSH: Code(s): R79.89 - Other specified abnormal findings of blood chemistry Status: Acute Assessment and Plan: TSH slightly decreased at 0.358 with normal T4 will need repeat TSH as an outpatient when not acutely ill (4) Hypertension: Code(s): I10 - Essential (primary) hypertension Status: Acute Assessment and Plan: blood pressures are stable will resume lisinopril at this time given improvement in renal function monitor blood pressure trends Subjective Date/time seen: 10/22/22 15:52 Interval history: date of service: 10/22/2022 Melissa Schmitz is a 62-year-old female with a history of hypertension, hyperlipidemia, osteoarthritis, and glaucoma who is seen in follow-up for left hand cellulitis. she underwent incision and drainage in the operating room today and is seen postoperatively. She states that she is feeling well. Her left hand pain is well controlled at this time and she rates this of 4/10. She does feel that she has increased swelling in her forearm up to her elbow, however she is not noticing as much redness in her forearm. She is still able to wiggle her fingers. States that she is trying to keep the arm elevated. She denies any postoperative nausea or vomiting. She had just returned to her room about 5 minutes before my arrival, so she has not had anything to eat or drink yet and she has not been up to urinate. She denies shortness of breath. No chest pain. Review of Systems Review of Systems: All systems reviewed & are unremarkable except as noted in HPI and below Exam Narrative: General: Well-nourished, well-appearing 62-year-old female, sitting up in bed, comfortable, NARD Neuro: awake, alert and oriented x4, speech clear, no focal neuro deficits noted HEENMT: normocephalic, atraumatic, EOMI, sclerae anicteric, moist oral mucosa Respiratory: clear to auscultation bilaterally, nonlabored breathing Cardio: regular rate, regular rhythm with S1-S2 Abdomen: nondistended, normoactive bowel sounds, soft, nontender to palpation Extremities: left hand Wrapped with dressing that is clean and dry, left fingers are edematous, able to wiggle fingers without difficulty, brisk capillary refill, left forearm with 1+ edema extending to the elbow Skin: no rashes or lesions, warm and dry Psych: appropriate mood and affect, judgment and insight intact Objective Data Vital Signs Vital Signs: Vital Signs - 24 hr 10/21/22 22:00 0
[2022-10-22] MEDS: ROSUVASTATIN 10 MG TABLET PO (19:48)
[2022-10-22] MEDS: LATANOPROST 0.005% OP SOLN 2.5 ML BTL 1 DROP EACH EYE (19:49)
[2022-10-23 05:45] LABS: Hematocrit 35.4 % (37.0-47.0); Hemoglobin 11.5 g/dL (12.0-15.0); Mean Corpuscular HGB Conc 32.5 g/dl (32-36); Mean Corpuscular Hemoglobin 28.9 pg (26-34); Mean Corpuscular Volume 88.9 fl (80-100); Platelet Count Result 220 k/mm3 (150-375); Red Blood Count 3.98 M/mm3 (4.2-5.4); Red Cell Distribution Width 11.9 % (11.5-14.5)
[2022-10-23 06:00] VITALS: BP 136/51; PULSE 86; RESP 16; TEMP 36.6; O2SAT 97
[2022-10-23 06:23] LABS: Anion Gap 4 mmol/L (8-16); Blood Urea Nitrogen 14 mg/dL (7-17); CRP 18.5 mg/dL (<1.0); Calcium 8.2 mg/dL (8.4-10.2); Carbon Dioxide 26 mmol/L (22-30); Chloride 102 mmol/L (98-107); Estimated CRCL calculation 53 ml/min; Estimated Glomerular Filt Rate > 60; Glucose 118 mg/dL (65-110); Potassium 3.8 mmol/L (3.4-5.0); Sodium 132 mmol/L (137-145)
--- NOTE | 2022-10-23 09:01 | WPDPN ---
Progress Note: A&P Assessment and Plan (1) Abscess of hand, left: Code(s): L02.512 - Cutaneous abscess of left hand Status: Acute Assessment and Plan: Surgically drained, cultured and dressed with alginate Ag wick dressing. Improved. Continue IV antibiotics. Consult with ID Pharm might be useful. Will schedule for 2nd washout and dressing change on Sat. Time Spent With Patient Time with patient: less than 15 minutes Subjective Date/time seen: 10/23/22 09:01 Interval history: Ambulating in the room. Slept well. Feels better. Exam Narrative: Dressing changed. Alginate Ag rope not removed. Edema, erythema, tenderness all reduced. AROM improved. No marilyn pus. No bleeding. WBC CRP both down. Blood and wound cultures pending. Objective Data Vital Signs Vital Signs: Vital Signs - 24 hr 10/22/22 09:45 10/22/22 10:47 10/22/22 13:10 Temperature 99.3 F 98.7 F Pulse Rate 70 63 Respiratory Rate 18 16 Blood Pressure 136/33 L 104/53 L Pulse Oximetry 98 100 Oxygen Delivery Room Air Room Air Simple Face Mask Oxygen Flow Rate 8 10/22/22 13:25 10/22/22 13:40 10/22/22 13:55 Temperature Pulse Rate 70 68 68 Respiratory Rate 14 16 14 Blood Pressure 139/76 137/69 139/68 Pulse Oximetry 96 96 95 Oxygen Delivery Room Air Room Air Room Air Oxygen Flow Rate 10/22/22 14:09 10/22/22 14:23 10/22/22 15:07 Temperature 97.8 F Pulse Rate 60 60 64 Respiratory Rate 14 12 16 Blood Pressure 116/83 116/83 143/61 H Pulse Oximetry 95 95 97 Oxygen Delivery Room Air Room Air Oxygen Flow Rate 10/22/22 20:00 10/22/22 22:00 10/23/22 06:00 Temperature 97.8 F 97.8 F Pulse Rate 66 86 Respiratory Rate 18 16 Blood Pressure 140/50 L 136/51 L Pulse Oximetry 97 97 Oxygen Delivery Room Air Oxygen Flow Rate Intake/Output Intake/Output: Intake & Output 10/20/22 10/21/22 10/22/22 10/23/22 23:59 23:59 23:59 23:59 Intake Total 350 2120 1310 Output Total 200 Balance 350 2120 1310 -200 Meds/Results Medications: Active Medications Generic Name Dose Route Start Last Admin Trade Name Freq PRN Reason Stop Dose Admin Acetaminophen 650 mg 10/20/22 15:39 Acetaminophen 325 Mg Tablet PO Q4H PRN Mild Pain (1-3) or Fever Hydrocodone Bitart/Acetaminophen 1 tab 10/20/22 17:09 Hydrocodone/Acetaminophen (*Crx) 5-325 Mg Tablet PO Q4H PRN pain 4-7 Dorzolamide/Timolol 1 drop 10/20/22 21:45 10/22/22 19:49 Dorzolamide/Timolol Ophth Wendi 10 Ml Bottle EACH EYE 1 drop Q12HR VENKAT Administration Enoxaparin Sodium 40 mg 10/21/22 09:00 10/22/22 09:45 Enoxaparin 40 Mg/0.4 Ml Syringe SUB-Q 40 mg DAILY VENKAT Administration Etodolac 400 mg 10/22/22 15:09 Etodolac 200 Mg Capsule PO BID PRN Muscle Pain Fentanyl Citrate 25 mcg 10/22/22 11:07 10/22/22 13:40 Fentanyl Citrate Inj (*Crx) 100 Mcg/2 Ml Vial IV PUSH 25 mcg Q2M PRN Administration Pain Vancomycin HCl 1,000 mg in 250 mls @ 250 mls/hr 10/21/22 14:00 10/22/22 17:04 Vancomycin 1,000 Mg/D5w 250 Ml IVPB 250 mls/hr Q24H VENKAT Administration Cefepime HCl 2 gm in 50 mls @ 100 mls/hr 10/21/22 09:00 10/22/22 19:47 Maxipime 2 Gm/D5w 50 Ml IVPB 100 mls/hr Q12HR VENKAT Administration Lactated Ringer's 1,000 mls @ 30 mls/hr 10/22/22 11:10 10/22/22 13:35 Lr - Lactated Ringers Iv IV CONT Infused .Q24H VENKAT Infusion Lactated Ringer's 1,000 mls @ 30 mls/hr 10/22/22 11:10 10/22/22 14:26 Lr - Lactated Ringers Iv IV CONT Infused .Q24H VENKAT Infusion Latanoprost 1 drop 10/20/22 21:45 10/22/22 19:49 Latanoprost 0.005% Op Soln 2.5 Ml Btl EACH EYE 1 drop HS VENKAT Administration Lisinopril 10 mg 10/23/22 09:00 Lisinopril 10 Mg Tablet PO DAILY VENKAT Menthol/Methyl Salicylate 1 applic 10/20/22 21:20 Menthol 10% / Methyl Salicylate 15% 57 Gm Tube TOPICAL BID PRN Muscle/Joint Pain Miscellaneous
--- NOTE | 2022-10-23 09:13 | WPDANESPN ---
Anes - Prog Note Post-Op Date/Time: 10/23/22 09:13 Cardiovascular status: normal Respiratory status: normal Airway patency: baseline Mental status: baseline Post-Op hydration status: normal Vital Signs: Last Vital Signs Temp 97.8 F 10/23/22 06:00 Pulse 86 10/23/22 06:00 Resp 16 10/23/22 06:00 BP 136/51 L 10/23/22 06:00 Pulse Ox 97 10/23/22 06:00 O2 Del Method Room Air 10/22/22 20:00 O2 Flow Rate 8 10/22/22 13:10 Pain Score (VAS): 0/10 I/O: Intake & Output 10/22/22 10/23/22 10/23/22 23:59 07:59 15:59 Intake Total 860 Output Total 200 Balance 860 -200 Laboratory Tests 10/23/22 05:25 10/23/22 05:25 10/23/22 10/23/22 05:25 05:25 WBC 13.0 H RBC 3.98 L Hgb 11.5 L Hct 35.4 L MCV 88.9 MCH 28.9 MCHC 32.5 RDW 11.9 Plt Count 220 MPV 11.0 H Sodium 132 L Potassium 3.8 Chloride 102 Carbon Dioxide 26 Anion Gap 4 L BUN 14 Creatinine 0.90 Estim Creat Clear Calc 53 Estimated GFR > 60 Glucose 118 H Calcium 8.2 L C-Reactive Protein 18.5 H Microbiology 10/21/22 16:23 Blood Blood Culture - Preliminary 10/21/22 16:23 Blood Blood Culture - Preliminary Post-procedural complaints: none Patient Feedback: Patient satisfied with anesthetic care.
[2022-10-23] MEDS: DORZOLAMIDE/TIMOLOL OPHTH SOL 10 ML BOTTLE 1 DROP EACH EYE ×2 (09:25→19:49)
[2022-10-23] MEDS: ENOXAPARIN 40 MG/0.4 ML SYRINGE SUB-Q (09:25)
[2022-10-23 13:49] LABS: Vancomycin Trough 5.6 ug/mL (10.0-20.0)
[2022-10-23 14:00] VITALS: BP 136/73; PULSE 63; RESP 18; TEMP 36.8; O2SAT 98
--- NOTE | 2022-10-23 14:29 | PM.IMPN ---
Progress Note: A&P Assessment and Plan (1) Cellulitis of left hand: Code(s): L03.114 - Cellulitis of left upper limb Status: Acute Assessment and Plan: Patient presented with left hand edema and erythema after noticing a tiny wound and the web of the 1st and 2nd digit appreciate Plastic/hand surgery consultation continue vancomycin and cefepime she did not have sufficient improvement with antibiotics, therefore was taken to the OR for I and D on 10/22. Tolerated the procedure well blood cultures are pending ( obtained after initiation of antibiotics as these were not obtained on arrival/admission) intraoperative wound cultures pending, await results and tailor antibiotics accordingly leukocytosis improving CRP with downward trend patient remains afebrile supportive care. Elevate extremity planning for repeat washout and dressing change tomorrow (2) Abscess of hand, left: Code(s): L02.512 - Cutaneous abscess of left hand Status: Acute Assessment and Plan: see above (3) RADHA (acute kidney injury): Code(s): N17.9 - Acute kidney failure, unspecified Status: Acute Assessment and Plan: creatinine normal on admission at 0.8 with increase to 1.2 Not felt to be prerenal in etiology as patient has been rehydrated with IV fluids and creatinine normal on presentation concerning for ATN secondary to infection versus antibiotics patient initiated on combination vancomycin and Zosyn which can cause kidney injury. Zosyn discontinued on 10/21. renal function has returned to baseline. Creatinine 0.9 today lisinopril placed on hold initially and has been resumed continue to monitor renal function closely (4) Abnormal TSH: Code(s): R79.89 - Other specified abnormal findings of blood chemistry Status: Acute Assessment and Plan: TSH slightly decreased at 0.358 with normal T4 will need repeat TSH as an outpatient when not acutely ill (5) Hypertension: Code(s): I10 - Essential (primary) hypertension Status: Acute Assessment and Plan: blood pressures are stable continue home lisinopril monitor blood pressure trends Subjective Date/time seen: 10/23/22 14:29 Interval history: date of service: 10/23/2022 Melissa Schmitz is a 62-year-old female with a history of hypertension, hyperlipidemia, osteoarthritis, and glaucoma who is seen in follow-up for left hand cellulitis. she underwent incision and drainage in the operating room on 10/22 and tolerated the procedure well. Her pain is well controlled at this time. Currently rates her pain at 1-2/10. She has been elevating her hand. She feels that her swelling has gone down in her fingers and her forearm. She denies fever, chills, nausea, vomiting, or diarrhea. No urinary symptoms. Eating well. Able to get around without difficulty. No additional concerns. Review of Systems Review of Systems: All systems reviewed & are unremarkable except as noted in HPI and below Exam Narrative: General: well-nourished, well-appearing 62-year-old female, sitting up in bed, comfortable, NARD Neuro: awake, alert and oriented x4, speech clear, no focal neuro deficits noted HEENMT: normocephalic, atraumatic, EOMI, sclerae anicteric, moist oral mucosa Respiratory: clear to auscultation bilaterally, nonlabored breathing Cardio: regular rate, regular rhythm with S1-S2 Abdomen: nondistended, normoactive bowel sounds, soft, nontender to palpation Extremities: left hand wrapped with dressing that is clean and dry, left fingers with improved edema, able to wiggle fingers without difficulty, brisk capillary refill, left forearm with tree edema extending to below the elbow Skin: no rashes or lesions, warm and dry Psych: appropriate mood and affect, judgment and insight intact Objective Data Vital Signs Vital Signs: Vital Signs - 24 hr 10/22/22 15:07
[2022-10-23] MEDS: lisinopriL 10 MG TABLET PO (19:49)
[2022-10-23] MEDS: ROSUVASTATIN 10 MG TABLET PO (19:49)
[2022-10-23] MEDS: LATANOPROST 0.005% OP SOLN 2.5 ML BTL 1 DROP EACH EYE (19:49)
[2022-10-23 21:39] VITALS: BP 149/66; PULSE 54; RESP 16; TEMP 36.2; O2SAT 100
[2022-10-24] VITALS (10 sets, daily range): BP systolic 109–159; BP diastolic 50–82; PULSE 54–60; RESP 13–18; TEMP 36.2–37.3; O2SAT 98–100
[2022-10-24 06:09] LABS: Basophils Absolute Auto 0.1 K/mm3 (0.0-0.1); Eosinophils Absolute Auto 0.2 K/mm3 (0-0.3); Eosinophils Percent Auto 1.9 % (0-4.4); Hematocrit 35.7 % (37.0-47.0); Hemoglobin 11.6 g/dL (12.0-15.0); Immature Granulocyte Absolute 0.11 K/mm3 (0.00-0.031); Immature Granulocyte Percent A 1.4 % (0-0.5); Lymphocytes Percent Auto 24.4 % (18.3-44.2); Mean Corpuscular HGB Conc 32.5 g/dl (32-36); Mean Corpuscular Hemoglobin 28.9 pg (26-34); Mean Platelet Volume 10.9 fl (7.4-10.4); Monocytes Absolute Auto 0.8 K/mm3 (0.1-0.6); Monocytes Percent Auto 10.5 % (2.6-8.5); Neutrophils Absolute Auto 4.7 K/mm3 (1.3-6.7); Neutrophils Percent Auto 60.8 % (45.5-73.1); Platelet Count Result 253 k/mm3 (150-375); Red Blood Count 4.01 M/mm3 (4.2-5.4); White Blood Count 7.8 K/mm3 (4.5-10.0)
[2022-10-24 06:25] LABS: Anion Gap 4 mmol/L (8-16); Blood Urea Nitrogen 16 mg/dL (7-17); CRP 6.2 mg/dL (<1.0); Carbon Dioxide 27 mmol/L (22-30); Chloride 106 mmol/L (98-107); Estimated CRCL calculation 53 ml/min; Estimated Glomerular Filt Rate > 60; Glucose 90 mg/dL (65-110); Potassium 3.9 mmol/L (3.4-5.0); Sodium 137 mmol/L (137-145)
[2022-10-24] MEDS: DORZOLAMIDE/TIMOLOL OPHTH SOL 10 ML BOTTLE 1 DROP EACH EYE ×2 (08:21→20:16)
--- NOTE | 2022-10-24 09:21 | P.PNAN_ITS ---
Anes - Eval Final PreProcedure Day of Procedure 10/24/22 09:21 Patient weight: overweight Heart: regular rate and rhythm Lungs: clear to auscultation Airway: Mallampati scale class II Neurological: alert and oriented Last oral intake: >/= 8 hours ASA classification: III Emergent: no Anesthetic plan: proceed Anesthesia type and monitoring: general LMA and standard monitoring Results Review: All pre-operative results and documents have been reviewed as part of the pre- operative evaluation. Informed Consent: The patient's anesthetic plan and its attendant risks and benefits were discussed with the patient/family/POA. Questions were solicited and answers provided to the satisfaction of the patient/family/POA.
--- NOTE | 2022-10-24 09:54 | PM.IMPN ---
Progress Note: A&P Assessment and Plan (1) Cellulitis of left hand: Code(s): L03.114 - Cellulitis of left upper limb Status: Acute Assessment and Plan: Patient presented with left hand edema and erythema after noticing a tiny wound and the web of the 1st and 2nd digit appreciate Plastic/hand surgery consultation Treated with vancomycin and cefepime 10/21 to 10/24. Transition to amoxicillin 500 mg p.o. q.8 hours to complete a total 10-14 day course S/p oR for I and D on 10/22. Tolerated the procedure well S/p OR washout on 10/24 blood cultures are negative today obtained after initiation of antibiotics as these were not obtained on arrival/admission) intraoperative wound cultures show group a strep growth leukocytosis and CRP are trending down supportive care. Elevate extremity (2) Abscess of hand, left: Code(s): L02.512 - Cutaneous abscess of left hand Status: Acute Assessment and Plan: see above (3) RADHA (acute kidney injury): Code(s): N17.9 - Acute kidney failure, unspecified Status: Acute Assessment and Plan: creatinine normal on admission at 0.8 with increase to 1.2 Not felt to be prerenal in etiology as patient has been rehydrated with IV fluids and creatinine normal on presentation concerning for ATN secondary to infection versus antibiotics patient initiated on combination vancomycin and Zosyn which can cause kidney injury. Zosyn discontinued on 10/21. renal function has returned to baseline. lisinopril placed on hold initially and has been resumed Renal function stable, judicious use of NSAIDs and other nephrotoxic agents (4) Abnormal TSH: Code(s): R79.89 - Other specified abnormal findings of blood chemistry Status: Acute Assessment and Plan: TSH slightly decreased at 0.358 with normal free T4 will need repeat TSH as an outpatient when not acutely ill (5) Hypertension: Code(s): I10 - Essential (primary) hypertension Status: Acute Assessment and Plan: blood pressures slightly increased today SBP 150s Increase lisinopril 20 mg p.o. daily. May have some pain component and monitor closely monitor blood pressure trends Plan Code status: Full code Disposition: Patient is from home Time Spent With Patient Time: 30 minutes time spent reviewing nursing and specialist documentation, labs, vitals, and patient assessment.? Subjective Date/time seen: 02/22/23 09:54 Interval history: Patient is a 62-year-old female with a history of hypertension, hyperlipidemia, osteoarthritis, and glaucoma who was admitted for management of left hand cellulitis. she underwent incision and drainage in the operating room on 10/22 and again today 10/23/22. Patient found lying in bed. She reports some burning sensation when her left hand is dependent, but it is mild at this time. She denies numbness, tingling, or pallor to her left hand. No chest pain, shortness a breath, palpitations, abdominal pain, nausea, vomiting or constipation. She does report having semi loose stool yesterday but none today. Review of Systems Review of Systems: All systems reviewed & are unremarkable except as noted in HPI and below Exam Narrative: General: well-nourished, well-appearing female, sitting up in bed, comfortable, NARD Neuro: awake, alert and oriented x4, speech clear, no focal neuro deficits noted HEENT: normocephalic, atraumatic, pupils equal and round, sclerae anicteric, moist oral mucosa Respiratory: clear to auscultation bilaterally, nonlabored breathing Cardio: regular rate, regular rhythm with S1-S2 Abdomen: nondistended, normoactive bowel sounds, soft, nontender to palpation Extremities: left hand wrapped with dressing that is clean and dry, able to wiggle fingers without difficulty, brisk capillary refill, left forearm without edema Skin: no rashes or lesions, warm and dry Psych: a
--- NOTE | 2022-10-24 10:54 | WPDHPUPDATE1 ---
History and Physical Update Update Date/Time: 10/24/22 10:54 History and Physical has been reviewed, including an updated exam of the patient. There are NO changes in the patient's condition. Risks, benefits, and alternatives have been discussed and questions answered. Patient agrees to proceed with procedure.
[2022-10-24] MEDS: LACTATED RINGERS 1,000 ML 30 ML IV CONT (11:00)
--- NOTE | 2022-10-24 11:58 | W.PM.PROC2 ---
Procedure Note - Detailed Date of Procedure 10/24/22 Pre-op Diagnosis Left Hand Cellulitis Secondary to Infected Wound Post-op Diagnosis Other (Status post sub fascial abscess left dorsal hand and wrist) Procedure Performed 2nd washout and dressing change. Simple repair of skin wounds left dorsal hand and wrist 4 cm Surgeon Aldo Valdez MD Anesthesia MAC Description of Procedure The left upper extremity was marked on the patient in the holding escalante with her consent. She was taken to the operating room where she was placed supine on the operating table. She was administered IV sedation as the left upper extremity was prepped and draped in usual fashion. The alginate rope miroslava were removed by the circulating nurse. No local anesthetic was utilized, the tourniquet was not utilized. The wounds were carefully inspected. Each was wiped free of exudate or debris with Ray-Nixon sponges passed through and through between each of these.. About 500 milliliter of saline were irrigated through all of these. No purulence was noted. Granulation tissue was seen everywhere. The wounds were redressed with alginate rope once again between the dorsal thumb and wrist and the ulnar hand and wrist. Portions of each of these wounds were repaired with interrupted 4-0 nylon sutures. A bulky gauze dressing was applied to the hand wrist and she was awakened and discharged from operating room stable condition. Estimated Blood Loss 5 Tourniquet Time 0 Urine Output 200 Drains No Packing Yes Pathology None sent Complications No immediate complications Condition Stable Disposition PACU
[2022-10-24] MEDS: fentaNYL CITRATE INJ (*CRX) 100 MCG/2 ML VIAL 25 MCG IV PUSH ×2 (12:02→12:05)
[2022-10-24] MEDS: LATANOPROST 0.005% OP SOLN 2.5 ML BTL 1 DROP EACH EYE (20:16)
[2022-10-24] MEDS: SACCHAROMYCES BOULARDII 250 MG CAPSULE PO (20:17)
[2022-10-24] MEDS: AMOXICILLIN 500 MG CAPSULE PO (20:17)
[2022-10-24] MEDS: lisinopriL 20 MG TABLET PO (20:18)
[2022-10-24] MEDS: ROSUVASTATIN 10 MG TABLET PO (20:18)
[2022-10-25 05:00] VITALS: BP 143/65; PULSE 60; RESP 18; TEMP 36.5; O2SAT 100
[2022-10-25 05:42] LABS: Basophils Absolute Auto 0.1 K/mm3 (0.0-0.1); Basophils Percent Auto 0.8 % (0.2-1.2); Eosinophils Absolute Auto 0.1 K/mm3 (0-0.3); Eosinophils Percent Auto 0.5 % (0-4.4); Hematocrit 37.7 % (37.0-47.0); Hemoglobin 12.6 g/dL (12.0-15.0); Immature Granulocyte Absolute 0.36 K/mm3 (0.00-0.031); Immature Granulocyte Percent A 3.5 % (0-0.5); Lymphocytes Absolute Auto 1.88 K/mm3 (0.9-3.2); Lymphocytes Percent Auto 18.5 % (18.3-44.2); Mean Corpuscular HGB Conc 33.4 g/dl (32-36); Mean Corpuscular Hemoglobin 29.9 pg (26-34); Mean Corpuscular Volume 89.3 fl (80-100); Mean Platelet Volume 10.8 fl (7.4-10.4); Monocytes Absolute Auto 0.9 K/mm3 (0.1-0.6); Neutrophils Absolute Auto 6.9 K/mm3 (1.3-6.7); Neutrophils Percent Auto 67.7 % (45.5-73.1); Platelet Count Result 301 k/mm3 (150-375); Red Blood Count 4.22 M/mm3 (4.2-5.4); Red Cell Distribution Width 11.9 % (11.5-14.5); White Blood Count 10.2 K/mm3 (4.5-10.0)
[2022-10-25] MEDS: AMOXICILLIN 500 MG CAPSULE PO ×2 (05:55→14:44)
[2022-10-25 05:56] LABS: Anion Gap 6 mmol/L (8-16); Blood Urea Nitrogen 16 mg/dL (7-17); Calcium 8.3 mg/dL (8.4-10.2); Carbon Dioxide 27 mmol/L (22-30); Chloride 100 mmol/L (98-107); Estimated CRCL calculation 48 ml/min; Estimated Glomerular Filt Rate 56; Glucose 96 mg/dL (65-110); Potassium 3.8 mmol/L (3.4-5.0); Sodium 133 mmol/L (137-145)
[2022-10-25] MEDS: SACCHAROMYCES BOULARDII 250 MG CAPSULE PO (08:27)
[2022-10-25] MEDS: DORZOLAMIDE/TIMOLOL OPHTH SOL 10 ML BOTTLE 1 DROP EACH EYE (08:27)
[2022-10-25] MEDS: ENOXAPARIN 40 MG/0.4 ML SYRINGE SUB-Q (08:27)
--- NOTE | 2022-10-25 10:19 | WPDANESPN ---
Anes - Prog Note Post-Op Date/Time: 10/25/22 10:19 Cardiovascular status: normal Respiratory status: normal Airway patency: baseline Mental status: baseline Post-Op hydration status: normal Vital Signs: Last Vital Signs Temp 36.5 C 10/25/22 05:00 Pulse 60 10/25/22 05:00 Resp 18 10/25/22 05:00 BP 143/65 H 10/25/22 05:00 Pulse Ox 100 10/25/22 05:00 O2 Del Method Room Air 10/25/22 08:30 O2 Flow Rate 8 10/24/22 11:45 Pain Score (VAS): 0 I/O: Intake & Output 10/24/22 10/25/22 10/25/22 23:59 07:59 15:59 Intake Total 740 150 Balance 740 150 Laboratory Tests 10/25/22 05:21 10/25/22 05:21 10/25/22 10/25/22 05:21 05:21 WBC 10.2 H RBC 4.22 Hgb 12.6 Hct 37.7 MCV 89.3 MCH 29.9 MCHC 33.4 RDW 11.9 Plt Count 301 MPV 10.8 H Immature Gran % (Auto) 3.5 H Neut % (Auto) 67.7 Lymph % (Auto) 18.5 [place] % (Auto) 9.0 H Eos % (Auto) 0.5 Baso % (Auto) 0.8 Lymph # (Auto) 1.88 [place] # (Auto) 0.9 H Eos # (Auto) 0.1 Baso # (Auto) 0.1 Abs Immat Gran (auto) 0.36 H Absolute Neuts (auto) 6.9 H Absolute Nucleated RBC 0.0 Nucleated RBC % 0.0 Sodium 133 L Potassium 3.8 Chloride 100 Carbon Dioxide 27 Anion Gap 6 L BUN 16 Creatinine 1.00 Estim Creat Clear Calc 48 Estimated GFR 56 L Glucose 96 Calcium 8.3 L Microbiology 10/22/22 12:34 Abscess Anaerobic Culture - Preliminary 10/22/22 12:34 Abscess Aerobic Culture - Preliminary Group A Streptococcus isolated Post-procedural complaints: none Patient Feedback: Patient satisfied with anesthetic care.
--- NOTE | 2022-10-25 13:07 | WPDPN ---
Progress Note: A&P Assessment and Plan (1) Abscess of hand, left: Code(s): L02.512 - Cutaneous abscess of left hand Status: Acute Assessment and Plan: S/P Strep abscess with marked improvement. Plan OK for discharge from my standpoint. Suggest Cepahalexin 500 mg tid #21. Daily dressing with dry gauze. Use hand as tolerated. May shower starting Saturday. May return to work on Saturday. F/U with Dr Valdez next Saturday. Subjective Date/time seen: 10/25/22 13:07 Interval history: Feels better. Asking when she might be able to shower or go to work. Exam Narrative: Cx with Strep sp. Swelling much improved. Still pink over the 1 st web area. ROM good. Betty pulled. No purulence. Objective Data Vital Signs Vital Signs: Vital Signs - 24 hr 10/24/22 14:00 10/24/22 20:00 10/24/22 21:05 Temperature 98.2 F 97.1 F L Pulse Rate 54 L 54 L 55 L Respiratory Rate 18 18 18 Blood Pressure 154/77 H 145/74 H Pulse Oximetry 100 100 98 Oxygen Delivery Room Air 10/25/22 05:00 10/25/22 08:30 Temperature 97.7 F Pulse Rate 60 Respiratory Rate 18 Blood Pressure 143/65 H Pulse Oximetry 100 Oxygen Delivery Room Air Intake/Output Intake/Output: Intake & Output 10/22/22 10/23/22 10/24/22 10/25/22 23:59 23:59 23:59 23:59 Intake Total 1360 1670 1710 390 Output Total 200 200 Balance 1360 1470 1510 390 Meds/Results Medications: Active Medications Generic Name Dose Route Start Last Admin Trade Name Freq PRN Reason Stop Dose Admin Acetaminophen 650 mg 10/20/22 15:39 Acetaminophen 325 Mg Tablet PO Q4H PRN Mild Pain (1-3) or Fever Hydrocodone Bitart/Acetaminophen 1 tab 10/20/22 17:09 Hydrocodone/Acetaminophen (*Crx) 5-325 Mg Tablet PO Q4H PRN pain 4-7 Amoxicillin 500 mg 10/24/22 22:00 10/25/22 05:55 Amoxicillin 500 Mg Capsule PO 10/31/22 21:59 500 mg Q8HR VENKAT Administration Dorzolamide/Timolol 1 drop 10/20/22 21:45 10/25/22 08:27 Dorzolamide/Timolol Ophth Wendi 10 Ml Bottle EACH EYE 1 drop Q12HR VENKAT Administration Enoxaparin Sodium 40 mg 10/21/22 09:00 10/25/22 08:27 Enoxaparin 40 Mg/0.4 Ml Syringe SUB-Q 40 mg DAILY VENKAT Administration Fentanyl Citrate 25 mcg 10/22/22 11:07 10/24/22 12:05 Fentanyl Citrate Inj (*Crx) 100 Mcg/2 Ml Vial IV PUSH 25 mcg Q2M PRN Administration Pain Fentanyl Citrate 25 mcg 10/24/22 09:21 Fentanyl Citrate Inj (*Crx) 100 Mcg/2 Ml Vial IV PUSH Q2M PRN Pain Latanoprost 1 drop 10/20/22 21:45 10/24/22 20:16 Latanoprost 0.005% Op Soln 2.5 Ml Btl EACH EYE 1 drop HS VENKAT Administration Lisinopril 20 mg 10/24/22 21:00 10/24/22 20:18 Lisinopril 20 Mg Tablet PO 20 mg HS VENKAT Administration Menthol/Methyl Salicylate 1 applic 10/20/22 21:20 Menthol 10% / Methyl Salicylate 15% 57 Gm Tube TOPICAL BID PRN Muscle/Joint Pain Ondansetron HCl 4 mg 10/21/22 15:26 10/21/22 15:34 Ondansetron Inj 4 Mg/2 Ml Vial IV PUSH 4 mg Q4H PRN Administration Nausea And Vomiting Ondansetron HCl 4 mg 10/22/22 11:07 Ondansetron Inj 4 Mg/2 Ml Vial IV PUSH ONCE PRN Nausea Ondansetron HCl 4 mg 10/24/22 09:21 Ondansetron Inj 4 Mg/2 Ml Vial IV PUSH ONCE PRN Nausea Rosuvastatin Calcium 10 mg 10/20/22 21:50 10/24/22 20:18 Rosuvastatin 10 Mg Tablet PO 10 mg HS VENKAT Administration Saccharomyces Boulardii 250 mg 10/24/22 21:00 10/25/22 08:27 Saccharomyces Boulardii 250 Mg Capsule PO 250 mg Q12HR VENKAT Administration Radiology Results: ITS Impressions Hand X-Ray 10/20/22 13:01 IMPRESSION: 1: NO ACUTE BONE OR JOINT ABNORMALITY IDENTIFIED. Labs Labs: Laboratory Results - last 24 hr 10/25/22 10/25/22 05:21 05:21 WBC 10.2 H RBC 4.22 Hgb 12.6 Hct 37.7 MCV 89.3 MCH 29.9 MCHC 33.4 RDW 11.9 Plt Count 301 MPV 10.8 H Immature Gran
--- NOTE | 2022-10-25 13:52 | PM.DS ---
DS: Admitting Diagnosis Discharge Date 10/25/22 1357 Admitting Diagnosis Cellulitis of left hand DS: Discharge Diagnosis Discharge Diagnosis (1) Cellulitis of left hand: Code(s): L03.114 - Cellulitis of left upper limb Status: Acute Assessment and Plan: Patient presented with left hand edema and erythema after noticing a tiny wound and the web of the 1st and 2nd digit appreciate Plastic/hand surgery consultation Treated with vancomycin and cefepime 10/21 to 10/24. Transition to cephalexin 500mg PO TID x 7 days, to complete a total 10-14 day course S/p oR for I and D on 10/22. Tolerated the procedure well S/p OR washout on 10/24 blood cultures are negative to date, but obtained after initiation of antibiotics as these were not obtained on arrival/admission intraoperative wound cultures show group a strep growth leukocytosis and CRP are trending down supportive care. Elevate extremity (2) Abscess of hand, left: Code(s): L02.512 - Cutaneous abscess of left hand Status: Acute Assessment and Plan: see above (3) RADHA (acute kidney injury): Code(s): N17.9 - Acute kidney failure, unspecified Status: Acute Assessment and Plan: creatinine normal on admission at 0.8 with increase to 1.2 Not felt to be prerenal in etiology as patient has been rehydrated with IV fluids and creatinine normal on presentation concerning for ATN secondary to infection versus antibiotics patient initiated on combination vancomycin and Zosyn which can cause kidney injury. Zosyn discontinued on 10/21. renal function has returned to baseline. lisinopril placed on hold initially and has been resumed Renal function stable, judicious use of NSAIDs and other nephrotoxic agents (4) Abnormal TSH: Code(s): R79.89 - Other specified abnormal findings of blood chemistry Status: Acute Assessment and Plan: TSH slightly decreased at 0.358 with normal free T4 will need repeat TSH as an outpatient when not acutely ill (5) Hypertension: Code(s): I10 - Essential (primary) hypertension Status: Acute Assessment and Plan: blood pressures slightly increased today SBP 150s Increase lisinopril 20 mg p.o. daily. May have some pain component and monitor closely monitor blood pressure trends DS: Summary Hospital Course Reason for hospitalization: skin abscess Hospital Course: Melissa Schmitz is a 62-year-old female patient who came in to the emergency room with complaint of left hand pain that started the night prior to admission.? The patient is not sure if she had a paper cut or how she cut the web between the left thumb and the left index finger.? She noticed that there was a crack there and then the redness developed.? She stated she thinks she got a paper cut 2-3 days prior.? The redness and swelling has increased as well as pain the whole left hand up to the wrist area is red.? Area blanches well.? Her white count is 19.9.? X-ray of the left hand shows no acute bone or joint abnormality identified.? She was admitted for antibiotic therapy. Her wound did not significantly improve despite IV antibiotics. Plastic Surgery, Dr. Valdez was consulted and she was taken to the OR for I&D on 10/22/22 and OR washout on 10/24/22. Wound culture showed small growth of group A strep. She was transitioned to oral cephalexin 500 mg Q8 hours x7 more days at discharge. She was discharged home with Plastic surgery follow up. She was discharged home in stable condition. Status at Discharge Cognitive/behavioral status at discharge: AAOx4, baseline Functional status at discharge: independent ambulation Overall status at discharge: patient is progressing back to baseline Time Spent with Patient Time attestation: Total time spent providing and/or coordinating discharge services: Time spent: Greater than 30 minutes Exam Narrative: General: well-minnie
== END 2022-10-25 15:09 | disposition home or self-care (01) | DRG 603 ==
LOC: ANHED 15:39 → ANH3MED 17:20
PROVIDERS: Nurse Practitioner; Physician Assistant; Plastic Surgery; Admitting Provider Hospitalist; Emergency Provider Emergency Medicine; PCP Internal Medicine; Visit Provider Nurse Practitioner Family
PROC: 0J9K0ZX Drainage of Left Hand Subcutaneous Tissue and Fascia, Open Approach, Diagnostic (ICD-10-PCS; principal; 2022-10-24 10:15)
DX: L03.114 Cellulitis of left upper limb (principal); L02.512 Cutaneous abscess of left hand; B95.0 Streptococcus, group A, as the cause of diseases classified elsewhere; I10 Essential (primary) hypertension; E78.5 Hyperlipidemia, unspecified; M19.90 Unspecified osteoarthritis, unspecified site; H40.9 Unspecified glaucoma; R79.89 Other specified abnormal findings of blood chemistry; Z90.722 Acquired absence of ovaries, bilateral
CPT/HCPCS: 36415; 73130; 80048; 80053; 80202; 82948; 83605; 83735; 84439; 84443; 84480; 85025; 85027; 86140; 87040; 87070; 87075; 87077; 87205; 96361; 96365; 96366; 96367; 96375; 99285; A9270; G0378; J0692; J1100; J1650; J1885; J2250; J2405; J2543; J2704; J3010; J3370; J7030; J7120

== ENCOUNTER 2023-05-16 16:04 | Outpatient (CLI) | payer OTHER, SELFPAY ==
--- NOTE | ~2023-05-16 | MM_ITS ---
EXAMINATION: MM screening reyna BI w gemma HISTORY: Screening mammogram TECHNIQUE: Craniocaudal and mediolateral oblique 3-D tomosynthesis images were obtained and synthetic 2-D images were generated. CAD analysis was submitted and interpreted. COMPARISON: October 06, 2020, March 12, 2019 bilateral screening mammogram examinations BREAST PARENCHYMAL COMPOSITION: The breasts are almost entirely fatty. FINDINGS: There is no evidence of suspicious mass, calcification, or architectural distortion to sugg est malignancy in either breast. There has been no suspicious interval change. IMPRESSION: 1. No mammographic evidence of malignancy. 2. Recommend routine screening mammography in one year. BI-RADS Category 1: Negative Reviewed, dictated and finalized at location A.
== END 2023-05-16 16:05 | disposition home or self-care (01) ==
PROVIDERS: PCP Internal Medicine; Visit Provider Obstetrics & Gynecology
DX: Z12.31 Encounter for screening mammogram for malignant neoplasm of breast (principal)
CPT/HCPCS: 77063; 77067

== ENCOUNTER 2023-10-03 15:40 | Emergency (ER) | payer OTHER, SELFPAY ==
--- NOTE | 2023-10-03 15:44 | ED.URI ---
HPI - URI/Sore Throat General Chief Complaint: Upper Respiratory Infection Stated Complaint: COVID Time Seen by Provider: 10/03/23 15:42 Source: patient Mode of arrival: ambulatory Limitations: no limitations History of Present Illness HPI Narrative: Patient is a 63-year-old female who presents with fever, runny nose and fatigue since yesterday. Patient had positive at home COVID test. Related Data Home Medications Medication Instructions Recorded Confirmed dorzolamide 22.3 mg-timolol 6.8 1 drp EACH EYE BID 03/30/21 10/03/23 mg/mL eye drops etodolac 400 mg tablet 400 mg PO BID PRN Muscle Pain 03/30/21 10/03/23 rosuvastatin 10 mg tablet 10 mg PO HS 03/30/21 10/03/23 travoprost 0.004 % eye drops 1 drp LEFT EYE HS 03/30/21 10/03/23 Allergies Allergy/AdvReac Type Severity Reaction Status Date / Time azithromycin Allergy Severe Swelling Verified 10/03/23 15:50 of Lip/Tongue/Throat Dust AdvReac Mild Difficulty Uncoded 10/03/23 15:50 Breathing Molds and Smuts AdvReac Mild Difficulty Uncoded 10/03/23 15:50 Breathing Review of Systems Review of Systems: All systems reviewed & are unremarkable except as noted in HPI and below Constitutional: Constitutional: Denies body ache(s), Denies chills, Reports fatigue, Reports fever(s), Denies headache(s), Denies malaise and Denies weakness Eyes: Eyes: Denies blurry vision, Denies itchy eyes and Denies loss of vision ENT: Denies otalgia, Denies headache(s), Denies nasal congestion, Reports nasal discharge, Denies sinus pain and Denies sore throat Cardiovascular: Cardiovascular: Denies chest pain, Denies irregular heart rhythm and Denies dyspnea Respiratory: Respiratory: Denies cough and Denies dyspnea Gastrointestinal: Gastrointestinal: Denies abdominal pain, Denies diarrhea, Denies nausea and Denies vomiting Musculoskeletal: Musculoskeletal: Denies back pain, Denies myalgias and Denies arthralgias Integumentary/Breasts: Skin/Breast: Denies pruritus and Denies rash Neurologic: Denies headache(s), Denies loss of vision and Denies weakness Psychiatric: Psychiatric: Reports no additional psychiatric complaints Endocrine: Endocrine: Denies fatigue Allergic/Immunologic: Allergic/Immunologic: Denies itchy eyes PMFSH Past Medical History Medical History Cellulitis of hand, right Glaucoma Hyperlipidemia Hypertension Osteoarthritis Pilonidal cyst removed Surgical History Surgical History H/O bilateral salpingo-oophorectomy H/O section 2 H/O eye surgery H/O hand surgery small finger right hand H/O tubal ligation History of surgical removal of skin lesion cyst off the tail bone S/P ORIF (open reduction internal fixation) fracture Left ankle Family History Family History Father Hypertension Hyperlipidemia Mother Hypertension Hyperlipidemia Sibling Lung calculus brother Glaucoma sister Social History Social History Social History: Lives alone since she has been but now has significant other. She has two children and two step children. 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 code status full code Smoking status: Never smoker Alcohol intake: former Substance use: never Lack of Transportation: No Lack of Food: Never True Current Housing: I Have Housing Concerned About Future Housing: No Difficulty Paying Gas/Electric Bills: No Difficulty Paying for Meds: No Currently Unemployed: No Education: Bachelor's Degree Difficulty w/ Childcare or Family Care: No Living arrangements: alone Spiritual care concerns: No Comments At time of signature, agree with nursing past medical, surgical, social and family history. There i
[2023-10-03 15:51] VITALS: BP 136/74; PULSE 69; RESP 16; TEMP 37.7; O2SAT 100
[2023-10-03 15:52] VITALS: BP 136/74; PULSE 69; RESP 16; TEMP 37.7; O2SAT 100
== END 2023-10-03 16:17 | disposition home or self-care (01) ==
PROVIDERS: Emergency Provider Nurse Practitioner Family; PCP Internal Medicine
DX: U07.1 COVID-19 (principal); E78.5 Hyperlipidemia, unspecified; I10 Essential (primary) hypertension; M19.90 Unspecified osteoarthritis, unspecified site; H40.9 Unspecified glaucoma
CPT/HCPCS: 87426; 99213; G0463

== ENCOUNTER 2024-06-02 16:07 | Outpatient (CLI) | payer OTHER, SELFPAY ==
--- NOTE | ~2024-06-02 | MM_ITS ---
EXAMINATION: MM screening reyna BI w gemma HISTORY: Screening TECHNIQUE: Craniocaudal and mediolateral oblique 3-D tomosynthesis images were obtained and synthetic 2-D images were generated. CAD analysis was submitted and interpreted. COMPARISON: Comparison to multiple prior studies sequentially, with oldest reviewed study dated 04/01. BREAST PARENCHYMAL COMPOSITION: Not Dense: The breasts are almost entirely fatty. FINDINGS: There is no evidence of suspicious mass, calcification, or architectural distortion to sugg est malignancy in either breast. There has been no suspicious interval change. IMPRESSION: 1. No mammographic evidence of malignancy. 2. Recommend routine screening mammography in one year. BI-RADS Category 1: Negative Reviewed, dictated and finalized at location B.
== END 2024-06-02 16:08 | disposition home or self-care (01) ==
PROVIDERS: PCP Internal Medicine; Visit Provider Obstetrics & Gynecology
DX: Z12.31 Encounter for screening mammogram for malignant neoplasm of breast (principal)
CPT/HCPCS: 77063; 77067

== ENCOUNTER 2024-11-23 17:42 | Emergency (ER) | payer OTHER, SELFPAY ==
--- NOTE | ~2024-11-23 | XR_ITS ---
EXAM: XR hand LT min 3V DATE: 11/23/2024 18:33 HISTORY: L hand pain . COMPARISON: None available. FINDINGS: Decreased mineralization. No fracture or dislocation. No lytic or blastic lesion. Mild sca ttered degenerative changes. No erosion or periosteal change. Soft tissues within normal limits. IMPRESSION: No acute osseous finding in the left hand. Reviewed, dictated and finalized at location K.
[2024-11-23 17:57] VITALS: BP 181/83; PULSE 71; RESP 15; TEMP 36.4; O2SAT 100
--- NOTE | 2024-11-23 18:10 | ED.EXTPRO ---
HPI - Extremity Problem General Chief complaint: Extremity Problem,Nontraumatic <Ruthie Galindo APRN - Last Filed: 11/23/24 18:17> Stated complaint: thumb infection <Ruthie Galindo APRN - Last Filed: 11/23/24 18:17> Time Seen by Provider: 11/23/24 18:05 <Ruthie Galindo CLAY PROCESSING LABOURER - Last Filed: 11/23/24 18:17> Focused HPI: Patient has fixed defect year old female who presents to the ER with complaints of left thumb pain. She reports she 1st noticed the pain approximately 1 week ago but has significantly worsened over the past 24 hours. Patient reports she was outside gardening prior to the pain starting, but does not think she has any thorns or foreign bodies in her thumb. She endorses full range of motion in her DIP and PIP joints. Patient endorses L thumb tenderness and redness. She denies any recent fevers, injuries to the site, or purulent drainage. GENERAL: Well-appearing, well-nourished, and in no acute distress. HEAD: Normocephalic, atraumatic. CHEST: Clear to auscultation. ?No respiratory distress. HEART: Regular rate and rhythm.? NEURO: ?Alert and oriented x3. Patient screened in triage and initial orders placed.? ?Additional care and disposition to be based upon?diagnostic testing and treatment. <Ruthie Galindo APRN - Last Filed: 11/23/24 18:17> Source: patient <Jameel Coleman PA-C - Last Filed: 11/24/24 01:28> Mode of arrival: ambulatory <Jameel Coleman PA-C - Last Filed: 11/24/24 01:28> Limitations: no limitations <Jameel Coleman PA-C - Last Filed: 11/24/24 01:28> History of Present Illness HPI Narrative: Agree with MSE note above. <Jameel Coleman PA-C - Last Filed: 11/24/24 01:28> Related Data Home medications: Home Medications ?Medication ?Instructions ?Recorded ?Confirmed ?Last Taken ?Type dorzolamide 22.3 mg-timolol 6.8 1 drp EACH EYE BID 03/30/21 10/03/23 10/19/22 21:00 History mg/mL eye drops etodolac 400 mg tablet 400 mg PO BID PRN Muscle Pain 03/30/21 10/03/23 Unknown History rosuvastatin 10 mg tablet 10 mg PO HS 03/30/21 10/03/23 10/19/22 21:00 History travoprost 0.004 % eye drops 1 drp LEFT EYE HS 03/30/21 10/03/23 10/19/22 21:00 History <Ruthie Galindo APRN - Last Filed: 11/23/24 18:17> Allergies/Adverse reactions: Allergies Allergy/AdvReac Type Severity Reaction Status Date / Time azithromycin Allergy Severe Swelling Verified 11/23/24 17:43 of Lip/Tongue/Throat Dust AdvReac Mild Difficulty Uncoded 11/23/24 17:43 Breathing Molds and Smuts AdvReac Mild Difficulty Uncoded 11/23/24 17:43 Breathing <Ruthie Galindo APRN - Last Filed: 11/23/24 18:17> Review of Systems Review of Systems: All systems as dictated in HPI <Jameel Coleman PA-C - Last Filed: 11/24/24 01:28> [facility] Past Medical History Medical History: Medical History Cellulitis of hand, right Glaucoma Hyperlipidemia Hypertension Osteoarthritis Pilonidal cyst removed <Ruthie Galindo APRN - Last Filed: 11/23/24 18:17> Surgical History Surgical History: Surgical History H/O bilateral salpingo-oophorectomy H/O section 2 H/O eye surgery H/O hand surgery small finger right hand H/O tubal ligation History of surgical removal of skin lesion cyst off the tail bone S/P ORIF (open reduction internal fixation) fracture Left ankle <Ruthie Galindo APRN - Last Filed: 11/23/24 18:17> Family History Family History: Family History Father Hypertension Hyperlipidemia Mother Hypertension Hyperlipidemia Sibling Lung calculus brother Glaucoma sister <Ruthie Galindo APRN - Last Filed: 11/23/24 18:17> Social History Social History: Social History Social History: Lives alone since she has been but now has significant other. She has two children and two step children. 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 code status full code Smoking status: Never smoker Alcohol intake: former Substance use: never Lack of Transportation: No Lack of Food: Never True Current Housing: I Have Housing Concerned About Future Housing: No Difficulty Paying Gas/Electric Bills: No Difficulty Paying for Meds: No Currently Unemployed: No Education: Bachelor's Degree Difficulty w/ Childcare or Family Care: No Living arrangements: alone Spiritual care concerns: No <Ruthie Galindo APRN - Last Filed: 11/23/24 18:17> Exam Narrative: GENERAL: Well-appearing, well-nourished, and in no acute distress. MSK: Normal range of motion. No edema. SKIN: Mild erythema and warmth to the lateral aspect of the left thumb. Tenderness to the area as well. No significant swelling or drainage. NEURO: Alert and oriented x4. No focal deficits. PSYCH: Normal mood and affect. <Jameel Coleman PA-C - Last Filed: 11/24/24 01:28> Course Vital Signs Vital signs: Vital Signs Temperature 97.6 F 11/23/24 17:57 Pulse Rate 71 11/23/24 17:57 Respiratory Rate 15 11/23/24 17:57 Blood Pressure 181/83 H 11/23/24 17:57 Pulse Oximetry 100 11/23/24 17:57 Oxygen Delivery Room Air 11/23/24 17:57 Temperature 97.6 F 11/23/24 17:57 Pulse Rate 78 11/23/24 19:47 Respiratory Rate 15 11/23/24 19:47 Blood Pressure 168/84 H 11/23/24 19:47 Pulse Oximetry 100 11/23/24 19:47 Oxygen Delivery Room Air 11/23/24 17:57 <Ruthie Galindo APRN - Last Filed: 11/23/24 18:17> Vital Signs Temperature 97.6 F 11/23/24 17:57 Pulse Rate 71 11/23/24 17:57 Respiratory Rate 15 11/23/24 17:57 Blood Pressure 181/83 H 11/23/24 17:57 Pulse Oximetry 100 11/23/24 17:57 Oxygen Delivery Room Air 11/23/24 17:57 Temperature 97.6 F 11/23/24 17:57 Pulse Rate 78 11/23/24 19:47 Respiratory Rate 15 11/23/24 19:47 Blood Pressure 168/84 H 11/23/24 19:47 Pulse Oximetry 100 11/23/24 19:47 Oxygen Delivery Room Air 11/23/24 17:57 <Jameel Coleman PA-C - Last Filed: 11/24/24 01:28> MDM - Extremity (Nontraumatic) MDM Narrative Medical decision making narrative: This is a 64-year-old female who presents to the ED for chief complaint of possible infection to the skin of the right thumb. Likely is developing a paronychia with some crack in the skin. Vitals show elevated blood pressure but otherwise normal. No fevers. No systemic signs or symptoms. There is not appear to be a fluctuance or abscess to the finger. No sign of deep space infection today. Patient will be placed on doxycycline prescription. Patient will be discharged in stable condition. Supportive measures discussed and return precautions given. Patient is understanding and agreeable with plan for discharge with PCP follow-up. <Jameel Coleman PA-C - Last Filed: 11/24/24 01:28> Discharge Plan Discharge Clinical Impression: Paronychia <Ruthie Galindo APRN - Last Filed: 11/23/24 18:17> Patient Disposition: Home, Self-Care <Ruthie Galindo APRN - Last Filed: 11/23/24 18:17> Condition: Stable <Ruthie Galindo APRN - Last Filed: 11/23/24 18:17> Instructions: Antibiotic Form <Ruthie Galindo APRN - Last Filed: 11/23/24 18:17> Additional Instructions: Exam today is showing early infection to the nail bed of the thumb. Please take antibiotics and ibuprofen as prescribed. Schedule follow-up closely with PCP. If you have any new or worsening symptoms please return to the ER for further evaluation. <Ruthie Galindo APRN - Last Filed: 11/23/24 18:17> Patient Language: Uzbek <Ruthie Galindo APRN - Last Filed: 11/23/24 18:17> Prescriptions: New doxycycline hyclate 100 mg capsule 100 mg PO BID 7 Days Qty: 14 0RF ibuprofen 600 mg tablet 600 mg PO Q6H PRN (Reason: fever or pain) Qty: 30 0RF No Action travoprost 0.004 % drops 1 drp LEFT EYE HS dorzolamide-timolol 22.3-6.8 mg/mL drops 1 drp EACH EYE BID rosuvastatin 10 mg tablet 10 mg PO HS etodolac 400 mg tablet 400 mg PO BID PRN (Reason: Muscle Pain) molnupiravir 200 mg capsule 800 mg PO Q12H 5 Days Qty: 40 0RF lisinopril 20 mg Tablet 20 mg PO HS 30 Days Qty: 30 0RF <Ruthie Galindo APRN - Last Filed: 11/23/24 18:17> Follow-up/Referrals: Mick,MD Nathaniel [Primary Care Provider] - <Ruthie Galnido APRN - Last Filed: 11/23/24 18:17> Time of Disposition: 19:19 <Ruthie Galindo APRN - Last Filed: 11/23/24 18:17> 19:19 <Jaemel Coleman PA-C - Last Filed: 11/24/24 01:28>
--- OUTSIDE RECORDS SUMMARY | 2024-11-23 18:59 | XMS_ITS | Clinical Summary ---
Author Organization [facility] Address [address] [place] [address] Care Team Providers Care Ordnance Handler Name Role Phone Unavailable Primary Care Provider Unavailabl e Source Comments [facility],non-owned Affiliates and Associated Physician Practices is amultiple site organization consisting of ambulatory clinics and hospital sitesin [place], [place], [place] and [place]. This disclosure is being madepursuant to the Care Everywhere program and may not contain all information available regarding this patient. Last updated 18.[facility] [employer] Social History Tobacco Use Types Packs/Day Years Used Date Smoking Tobacco: Never Assessed Sex and Gender Information Value Date Recorded Sex Assigned at Not on file Gender Identity Not on file Sexual Orientation Not on file Plan of Treatment Health Maintenance Due Date Last Done Comments BONE DENSITY TESTING 1959 COLOGUARD (AGES 45-75) - COL ON CA SCREENING 1959 COLON MONITORING 1959 COLONOSCOPY - COLON CA SCREENING 1959 CT COLONOGRAPHY - COLON CA SCREENING 1959 Colorectal Cancer Screening 1959 FIT - COLON CA SCREENING 1959 FLEX SIG - COLON CA SCREENING 1959 LIPID TESTING 1959 MAMMOGRAM 1959 PAP SMEAR 1959 HIV SCREENING 1974 HEPATITIS C SCREENING 02/27/1977 DTAP/TDAP/TD VACCINES (1 - Tdap) 1978 PNEUMOCOCCAL VACCINE 50+ (1 of 1 - PCV) 2009 ZOSTER VACCINE (1 of 2) 2009 COVID-19 VACCINE ( - 2023-2 5 season) 2024 INFLUENZA VACCINE (#1) 2024 DEPRESSION SCREENING 09/02/2024 Respiratory Syncytial Virus (RSV) Vaccine Pt: or over 60 yrs (1 - 1-dose 75+ series) 2034 HEPATITIS B VACCINE Aged Out No longe r eligible based on patient's age to complete this topic HIB VACCINE Aged Out No longer eligi ble based on patient's age to complete this topic HPV VACCINE Aged Out No longer eligi ble based on patient's age to complete this topic MENINGOCOCCAL (Group B) VACC INE SHARED DECISION-MAKING Aged Out No longer eligibl e based on patient's age to complete this topic MENINGOCOCCAL GROUPS A/C/Y/W VACCINE Aged Out No longer eligible b ased on patient's age to complete this topic
--- OUTSIDE RECORDS SUMMARY | 2024-11-23 19:00 | XMS_ITS | Encounter Summary ---
Author Organization [facility] Address [address] [facility] [place] [address] Care Team Providers Care Grocery Buyer Name Role Phone Unavailable Primary Care Provider Unavailabl e Encounter Details Date Type Department Care Team (Late st Contact Info) Description 02/17/2020 Lab Requisition [facility] DermPath Lab [address] [place] [address] Apolinar [place] [address] Social History Tobacco Use Types Packs/Day Years Used Date Smoking Tobacco: Never Assessed Sex and Gender Information Value Date Recorded Sex Assigned at Not on file Gender Identity Not on file Sexual Orientation Not on file documented as of this encounter Plan of Treatment Not on file documented as of this encounter Procedures Procedure Name Priority Date/Time Associated Diagnosis Comments DERMATOPATHOLOGY Routine 02/16/2020 12:0 0 AM CDT documented in this encounter Results * DERMATOPATHOLOGY (02/16/2020 12:00 AM CDT) Case Report Dermatopathology Report Case: [id number] Authorizing Provider: Apolinar Paulson MD Collected: 02/16/2020 12:00 AM Ordering Location: [facility] DermPath Lab Received: 02/17/2020 11:20 AM Pathologist: Sancho Dugan MD Specimens: A) - Skin, right lat distal upper arm B) - Skin, right prox FA C) - Skin, right ant midline prox thigh 0 1:09 PM CDT DERMATOPATHOLOGY LABORATORY Final Diagnosis Specimen A. SKIN, right lat distal upper arm: SEBORRHEIC KERATOSIS, MACULAR; INFLAMED (L82.1) Specimen B. SKIN, right prox FA: SEBACEOUS HYPERPLASIA (L73.8) Specimen C. SKIN, right ant midline prox thigh: LICHEN PLANUS-LIKE KERATOSIS (BENIGN LICHENOID KERATOSIS) (L82.1) 0 1:09 PM [facility] DERMATOPATHOLOGY LABORATORY Clinical History A: R/O BCC B: R/O BCC vs SH C: R/O BCC 0 1:09 PM T DERMATOPATHOLOGY LABORATORY Gross Description Specimen A: Received is one formalin filled container labeled with the patient's name and designated right lat distal upper arm. The specimen consists of a shave biopsy measuring 6x5x1 mm. Jar 0. Specimen B: Received is one formalin filled container labeled with the patient's name and designated right prox FA. The specimen consists of a shave biopsy measuring 4x3x1 mm. Jar 0. Specimen C: Received is one formalin filled container labeled with the patient's name and designated right ant midline prox thigh. The specimen consists of a shave biopsy measuring 9x7x1 mm. Jar 0. 0 1:09 PM T DERMATOPATHOLOGY LABORATORY Microscopic Description Specimen A. SKIN, right lat distal upper arm: Sections show a relatively broad, flat proliferation of small keratinocytes. The surface is gently papillated, and there is increased basilar pigmentation. Specimen B. SKIN, right prox FA: There are prominent sebaceous gland lobules surrounding a dilated hair follicle. Specimen C. SKIN, right ant midline prox thigh: The epidermis is mildly acanthotic. There is a lichenoid infiltrate with vacuolar changes of basilar keratinocytes and scattered necrotic keratinocytes. 0 1:09 PM T DERMATOPATHOLOGY LABORATORY Disclaimer An external and internal positive and negative controls are appropriate for the histochemical, immunohistochemical and immunofluorescence stain(s) in this case (if any), except where stated explicitly. The performance characteristics of the stain(s) cited in this report were developed and its performance characteristic determined by the Dermatopathology Laboratory at [facility], directed by Dr. Lesvia Dugan. These tests need not be, and therefore are not, approved by the [place] Food and Drug Administration. The tests are used for clinical purposes. Hemaing Codes Specimen Charges Stain Charges 88451 45780 99736 1 1 1 0 1:09 PM CDT DERMATOPATHOLOGY LABORATORY Embedded Images 0 1:09 PM CDT DERMATOPATHOLOGY LABORATORY Pathology/Cytology TISSUE SPECIMEN FROM SKIN / Unknown 02/16/2020 02/17/2020 11:20 AM CDT Miscellaneous samples (specimen) TISSUE SPECIMEN FROM SKIN / Unknown 02/16/2020 02/17/2020 11:20 AM CDT Miscellaneous samples (specimen) TISSUE SPECIMEN FROM SKIN / Unknown 02/16/2020 02/17/2020 11:20 AM CDT Apolinar Paulson MD LAB - PATHOLOGY/CYTO LOGY ORDERABLES DERMATOPATHOLOGY LABORATORY [facility] - Department of Dermatology [facility]/[address] [phone] documented in this encounter Visit Diagnoses Not on filedocumented in this encounter
--- OUTSIDE RECORDS SUMMARY | 2024-11-23 19:00 | XMS_ITS | Encounter Summary ---
Author Organization [facility] Address [address] [facility] [place] [address] Care Team Providers Care Group Cio Name Role Phone Unavailable Primary Care Provider Unavailabl e Encounter Details Date Type Department Care Team (Late st Contact Info) Description 05/05/2020 Lab Requisition [facility] DermPath Lab [address] [place] [address] Apolinar Paulson [place] [address] Social History Tobacco Use Types [...] Priority Date/Time Associated Diagnosis Comments DERMATOPATHOLOGY Routine 05/04/2020 12:0 0 AM CDT documented in this encounter Results * DERMATOPATHOLOGY (05/04/2020 12:00 AM CDT) Case Report Dermatopathology Report Case: [id number] Authorizing Provider: Apolinar Paulson MD Collected: 05/04/2020 12:00 AM Ordering Location: [facility] DermPath Lab Received: 05/05/2020 12:47 PM Pathologist: Sancho Dugan MD Specimens: A) - Skin, right proximal ext forearm B) - Skin, right elbow 0 1:58 PM CDT DERMATOPATHOLOGY LABORATORY Final Diagnosis Specimen A. SKIN, right proximal ext forearm: SQUAMOUS CELL CARCINOMA, VERRUCOUS (C44.622) Specimen B. SKIN, right elbow: VERRUCA VULGARIS (B07.8) 0 1:58 PM CDT DERMATOPATHOLOGY LABORATORY Clinical History A: R/O KA, SCC, VV, molluscum, warty dyskeratoma. B: R/O VV, ISK, molluscum. 0 1:58 PM CDT DERMATOPATHOLOGY LABORATORY Gross Description Specimen A: Received is one formalin filled container labeled with the patient's name and designated right proximal ext forearm. The specimen consists of a shave biopsy measuring [id number]. Jar 0. Specimen B: Received is one formalin filled container labeled with the patient's name and designated right elbow. The specimen consists of a shave biopsy (2 pieces) measuring [id number] & 9q4v0zi. Jar 0. 0 1:58 PM CDT DERMATOPATHOLOGY LABORATORY Microscopic Description Specimen A. SKIN, right proximal ext forearm: Arising in the epidermis and extending into the dermis there are irregularly shaped aggregates of keratinocytes showing evidence of premature cornification. Specimen B. SKIN, right elbow: There is digitated epidermal hyperplasia, hypergranulosis, vacuolated granular layer cells, and compact hyperorthokeratosis . 0 1:58 PM CDT DERMATOPATHOLOGY LABORATORY Disclaimer An external and internal positive and negative controls are appropriate for the histochemical, immunohistochemical and immunofluorescence stain(s) in this case (if any), except where stated explicitly. The performance characteristics of the stain(s) cited in this report were developed and its performance characteristic determined by the Dermatopathology Laboratory at [facility], directed by Dr. Lesvia Dugan. These tests need not be, and therefore are not, approved by the [place] Food and Drug Administration. The tests are used for clinical purposes. Billing Codes Specimen Charges Stain Charges 85195 25755 1 1 0 1:58 PM CDT DERMATOPATHOLOGY LABORATORY Embedded Images 0 1:58 PM CDT DERMATOPATHOLOGY LABORATORY Pathology/Cytology TISSUE SPECIMEN FROM SKIN / Unknown 05/04/2020 05/05/2020 12:47 PM CDT Miscellaneous samples (specimen) TISSUE SPECIMEN FROM SKIN / Unknown 05/04/2020 05/05/2020 12:47 PM CDT Apolinar Paulson MD LAB - PATHOLOGY/CYTO LOGY ORDERABLES DERMATOPATHOLOGY LABORATORY [facility] - Department of Dermatology [facility] [address] [place] [address], [address] [phone] documented in this encounter Visit Diagnoses Not on filedocumented in this encounter
--- OUTSIDE RECORDS SUMMARY | 2024-11-23 19:00 | XMS_ITS | Encounter Summary ---
Author Organization [facility] Address [address] [facility] [place] [address] Care Team Providers Care Technical Architect Name Role Phone Unavailable Primary Care Provider Unavailabl e Encounter Details Date Type Department Care Team (Late st Contact Info) Description 07/23/[address] [facility] DermPath Lab [address] [place] [address] [place]olinar [place] [address] Social History Tobacco Use Types [...] Priority Date/Time Associated Diagnosis Comments DERMATOPATHOLOGY Routine 07/22/2019 12:0 0 AM DISPATCH COORDINATOR documented in this encounter Results * DERMATOPATHOLOGY (07/22/2019 12:00 AM DISPATCH COORDINATOR) Case Report Dermatopathology Report Case: [id number] Authorizing Provider: Apolinar Paulson MD Collected: 07/22/2019 12:00 AM Ordering Location: [facility] DermPath Lab Received: 07/23/2019 02:04 PM Pathologist: Laurie Jules MD Specimen: Skin, right ulnar ext FA 9 11:23 PM DISPATCH COORDINATOR DERMATOPATHOLOGY LABORATORY Final Diagnosis Specimen A. SKIN, right ulnar ext FA: SQUAMOUS CELL CARCINOMA IN SITU (MACIAS'S DISEASE) (D04.61) 9 11:23 PM [facility] Clinical History R/O BCC, SCC. 9 11:23 PM [facility] Gross Description Specimen A: Received is one formalin filled container labeled with the patient's name and designated right ulnar ext FA. The specimen consists of a shave biopsy measuring 26v4q2ie. Jar 0. 9 11:23 PM [facility] D[facility]ORY Microscopic Description Specimen A. SKIN, right ulnar ext FA: There is disorderly maturation of keratinocytes with nuclear pleomorphism throughout the full thickness of the epidermis and overlying parakeratosis. Additional deeper sections were obtained and reviewed. 9 11:23 PM [facility] D[facility]ORY Disclaimer An external and internal positive and negative controls are appropriate for the histochemical, immunohistochemical and immunofluorescence stain(s) in this case (if any), except where stated explicitly. The performance characteristics of the stain(s) cited in this report were developed and its performance characteristic determined by the Dermatopathology Laboratory at [facility], directed by Dr. Lesvia Dugan. These tests need not be, and therefore are not, approved by the [place] Food and Drug Administration. The tests are used for clinical purposes. Billing Codes Specimen Charges Stain Charges 16951 1 9 11:23 PM [facility] DER[facility] LAB[facility]ATORY Embedded Images 11:23 PM [facility] D[facility]ORY Pathology/Cytolog y TISSUE SPECIMEN FROM SKIN / Unknown 07/22/2019 07/23/2019 2:04 PM DISPATCH COORDINATOR Apolinar Paulson MD LAB - PATHOLOGY/CYTO LOGY ORDERABLES DERMATOPATHOLOGY LABORATORY [facility] - Department of Dermatology [address] [place] [address], [address] Lab [address] [phone] documented in this encounter Visit Diagnoses Not on filedocumented in this encounter
--- OUTSIDE RECORDS SUMMARY | 2024-11-23 19:00 | XMS_ITS | Encounter Summary ---
Author Organization [facility] Address [address] [facility] [place] [address] Care Team Providers Care Exhaust Tender Name Role Phone Unavailable Primary Care Provider Unavailabl e Encounter Details Date Type Department Care Team (Late st Contact Info) Description 06/04/2018 Lab Requisition [facility] Care DermPath Lab [address] [place] [address] [place] [address] Social History Tobacco Use Types [...] Priority Date/Time Associated Diagnosis Comments DERMATOPATHOLOGY Routine 06/03/2018 12:0 0 AM CDT documented in this encounter Results * DERMATOPATHOLOGY (06/03/2018 12:00 AM CDT) Case Report Dermatopathology Report Case: [id number] Authorizing Provider: Apolinar Paulson MD Collected: 06/03/2018 12:00 AM Pathologist: Sancho Dugan MD Received: 06/04/2018 12:12 PM Specimen: Skin, shave 8 1:14 PM CDT DERMATOPATHOLOGY LABORATORY Final Diagnosis Specimen A. SKIN, shave: INTRADERMAL MELANOCYTIC NEVUS (D22.39) 8 1:14 PM CDT DERMATOPATHOLOGY LABORATORY Clinical History R/O BCC vs SK. 1:14 PM CDT DERMATOPATHOLOGY LABORATORY Gross Description Specimen A: Received is one formalin filled container labeled with the patient's name and designated shave. The specimen consists of a shave biopsy measuring [id number]. Jar 0. 1:14 PM CDT DERMATOPATHOLOGY LABORATORY Microscopic Description Specimen A. SKIN, shave: There are nests of cytologically bland melanocytes within the dermis that mature with depth. 1:14 PM CDT DERMATOPATHOLOGY LABORATORY Disclaimer An external and internal positive and negative controls are appropriate for the histochemical, immunohistochemical and immunofluorescence stain(s) in this case (if any), except where stated explicitly. The performance characteristics of the stain(s) cited in this report were developed and its performance characteristic determined by the Dermatopathology Laboratory at [facility]. These tests need not be, and therefore are not, approved by the [place] Food and Drug Administration. The tests are used for clinical purposes. Billing Codes Specimen Charges Stain Charges 05104 1 1:14 PM CDT DERMATOPATHOLOGY LABORATORY Embedded Images 1:14 PM CDT DERMATOPATHOLOGY LABORATORY Pathology/Cytolog y TISSUE SPECIMEN FROM SKIN / Unknown 06/03/2018 06/04/2018 12:12 PM CDT Apolinar Paulson MD LAB - PATHOLOGY/CYTO LOGY ORDERABLES Performing Organization Address City/State/[facility] Co de Phone Number DERMATOPATHOLOGY LABORATORY [facility] - Department of Dermatology [address] [place] [address], 5th Floor Lab [address] [place], [place] [id number] [place] [address] documented in this encounter Visit Diagnoses Not on filedocumented in this encounter
--- OUTSIDE RECORDS SUMMARY | 2024-11-23 19:40 | XMS_ITS | Encounter Summary ---
Author Organization [facility] Address [address] [place] [address] Care Team Providers Care Program Associate Name Role Phone Unavailable Primary Care Provider Unavailabl e Encounter Details Date Type Department Care Team (Late st Contact Info) Description 02/17/2020 Lab Requisition [facility] DermPath Lab [address] [place] [address] [place]olinar [place] [address] Social History Tobacco Use Types [...] AM CDT) Case Report Dermatopathology Report Case: [id number] Authorizing Provider: Apolinar Paulson MD Collected: 02/16/2020 12:00 AM Ordering Location: [facility] DermPath Lab Received: 02/17/2020 11:20 [...] (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 Lesvia Dugan. These tests need not be, and therefore are not, approved by the [place] Food and Drug Administration. The tests are used for clinical purposes. Hemaing Codes Specimen Charges Stain Charges 91976 09163 92695 1 1 1 0 1:09 PM CDT [...] LAB - PATHOLOGY/CYTO LOGY ORDERABLES DERMATOPATHOLOGY LABORATORY [facility] - Department of Dermatology Credit Correspondence Clerk Center/[address] [phone] documented in this encounter Visit Diagnoses Not on filedocumented in this encounter
--- OUTSIDE RECORDS SUMMARY | 2024-11-23 19:40 | XMS_ITS | Encounter Summary ---
Author Organization [facility] Address [address] [facility] [place] [address] Care Team Providers Care Program Manager Rn Name Role Phone Unavailable Primary Care Provider Unavailabl e Encounter Details Date Type Department Care Team (Late st Contact Info) Description 06/04/2018 Lab Requisition [facility] Care DermPath Lab [address] [place] [address] [place]olin[place] [address] Social History Tobacco Use Types [...] AM CDT) Case Report Dermatopathology Report Case: [id number] Authorizing Provider: Apolinar Paulson MD Collected: 06/03/2018 [...] specimen consists of a shave biopsy measuring [id number]. Jar 0. 1:14 PM CDT DERMATOPATHOLOGY LABORATORY [...] determined by the Dermatopathology Laboratory at [facility]. These tests need not be, and therefore are not, approved by the [place] Food and Drug Administration. The tests are used for clinical purposes. Billing Codes Specimen Charges Stain Charges 51188 1 1:14 PM CDT DERMATOPATHOLOGY LABORATORY Embedded Images 1:14 PM CDT DERMATOPATHOLOGY LABORATORY Pathology/Cytolog y TISSUE SPECIMEN FROM SKIN / Unknown 06/03/2018 06/04/2018 12:12 PM CDT Apolinar Paulson MD LAB - PATHOLOGY/CYTO LOGY ORDERABLES Performing Organization Address City/State/[facility] Co de Phone Number DERMATOPATHOLOGY LABORATORY [facility] - Department of Dermatology [address] [place] [address], 5th Floor Lab B [place], [place] [id number] [place] [address] documented in this encounter Visit Diagnoses Not on filedocumented in this encounter
--- OUTSIDE RECORDS SUMMARY | 2024-11-23 19:40 | XMS_ITS | Clinical Summary ---
Author Organization [facility] Address [address] [place] [address] Care Team Providers Care Dry Placer Machine Operator Name Role Phone Unavailable Primary Care Provider Unavailabl e Source Comments [facility],non-owned Affiliates and Associated Physician Practices is amultiple site organization consisting of ambulatory clinics and hospital sitesin [place], [place], [place]. This disclosure is being madepursuant to the Care Everywhere program and may not contain all information available regarding this patient. Last updated 18.[facility] [place] Social History Tobacco Use Types Packs/Day Years [...]
--- OUTSIDE RECORDS SUMMARY | 2024-11-23 19:40 | XMS_ITS | Encounter Summary ---
Author Organization [facility] Address [address] [facility] [place] [address] Care Team Providers Care Systems Integrator Name Role Phone Unavailable Primary Care Provider Unavailabl e Encounter Details Date Type Department Care Team (Late st Contact Info) Description 07/23/2019 Lab Requisition [facility] DermPath Lab [address] [place] [address] Aploinar [place] [address] Social History Tobacco Use Types [...] Comments DERMATOPATHOLOGY Routine 07/22/2019 12:0 0 AM HYDRAULIC RIVETER documented in this encounter Results * DERMATOPATHOLOGY (07/22/2019 12:00 AM HYDRAULIC RIVETER) Case Report Dermatopathology Report Case: [id number] Authorizing Provider: Apolinar Paulson MD Collected: 07/22/2019 12:00 AM Ordering Location: [facility] DermPath Lab Received: 07/23/2019 02:04 PM Pathologist: Laurie Jules MD Specimen: Skin, right ulnar ext FA 9 11:23 PM HYDRAULIC RIVETER DERMATOPATHOLOGY LABORATORY Final Diagnosis Specimen A. 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 9 11:23 PM [facility] DERMATOPATHOLOGY LABORATORY Gross Description Specimen A: Received is one formalin filled container labeled with the patient's name and designated right ulnar ext FA. The specimen consists of a shave biopsy measuring 37f7w2sb. Jar 0. 9 11:23 PM [facility] DERMATOPATHOLOGY LABORATORY Microscopic Description Specimen A. SKIN, right ulnar ext FA: There is disorderly maturation of keratinocytes with nuclear pleomorphism throughout the full thickness of the epidermis and overlying parakeratosis. Additional deeper sections were obtained and reviewed. 9 11:23 PM [facility] DERMATOPATHOLOGY LABORATORY Disclaimer An external and internal positive and negative controls are appropriate for the histochemical, immunohistochemical and immunofluorescence stain(s) in this case (if any), except where stated explicitly. The performance characteristics of the stain(s) cited in this report were developed and its performance characteristic determined by the Dermatopathology Laboratory at [facility], directed by Dr. Lesvia Dugan. These tests need not be, and therefore are not, approved by the [place] Food and Drug Administration. The tests are used for clinical purposes. Billing Codes Specimen Charges Stain Charges 15128 1 9 11:23 PM [facility] DERMATOPATHOLOGY LABORATORY Embedded Images 11:23 PM [facility] DERMATOPATHOLOGY LABORATORY Pathology/Cytolog y TISSUE SPECIMEN FROM SKIN / Unknown 07/22/2019 07/23/2019 2:04 PM HYDRAULIC RIVETER Apolinar Paulson MD LAB - PATHOLOGY/CYTO LOGY ORDERABLES DERMATOPATHOLOGY LABORATORY [facility] - Department of Dermatology [address] [place] [address], 5[address] Floor Lab [address] [phone] documented in this encounter Visit Diagnoses Not on filedocumented in this encounter
--- OUTSIDE RECORDS SUMMARY | 2024-11-23 19:40 | XMS_ITS | Encounter Summary ---
Author Organization [facility] Address [address] [facility] [address] Care Team Providers Care Director Global Market Research Name Role Phone Unavailable Primary Care Provider Unavailabl e Encounter Details Date Type Department Care Team (Late st Contact Info) Description 05/05/2020 Lab Requisition [facility] DermPath Lab [address] [place] [address] [place]olin[place] [address] Social History Tobacco Use Types [...] AM CDT) Case Report Dermatopathology Report Case: [id number] Authorizing Provider: Apolinar Paulson MD Collected: 05/04/2020 12:00 AM Ordering Location: [facility] DermPath Lab Received: 05/05/2020 12:47 PM [...] specimen consists of a shave biopsy measuring [id number]. Jar 0. Specimen B: Received is one formalin filled container labeled with the patient's name and designated right elbow. The specimen consists of a shave biopsy (2 pieces) measuring 2g1a0se & 5i1h9vd. Jar 0. 0 1:58 PM CDT DERMATOPATHOLOGY [...] characteristic determined by the Dermatopathology Laboratory at [facility], directed by Dr. Lesvia Dugan. These tests need not be, and therefore are not, approved by the [place] Food and Drug Administration. The tests are used for clinical purposes. Billing Codes Specimen Charges Stain Charges 10868 23821 1 1 0 1:58 PM CDT DERMATOPATHOLOGY LABORATORY Embedded Images 0 1:58 PM CDT DERMATOPATHOLOGY LABORATORY Pathology/Cytology TISSUE SPECIMEN FROM SKIN / Unknown 05/04/2020 05/05/2020 12:47 PM CDT Miscellaneous samples (specimen) TISSUE SPECIMEN FROM SKIN / Unknown 05/04/2020 05/05/2020 12:47 PM CDT Apolinar Paulson MD LAB - PATHOLOGY/CYTO LOGY ORDERABLES DERMATOPATHOLOGY LABORATORY [facility] - Department of Dermatology [facility] Medicine [address] [place] [address], [address] [phone] documented in this encounter Visit Diagnoses Not on filedocumented in this encounter
[2024-11-23 19:47] VITALS: BP 168/84; PULSE 78; RESP 15; O2SAT 100
== END 2024-11-23 19:49 | disposition home or self-care (01) ==
PROVIDERS: Emergency Provider Physician Assistant; PCP Internal Medicine
DX: L03.012 Cellulitis of left finger (principal); E78.5 Hyperlipidemia, unspecified; I10 Essential (primary) hypertension; H40.9 Unspecified glaucoma
CPT/HCPCS: 73130; 99283